=== PATIENT | female | born 1985 | race Caucasian/White ===

== ENCOUNTER → 2018-05-15 10:30 | Outpatient (CLI) | payer BC, SELFPAY ==
[2018-05-15 11:02] LABS: Kit/Specimen SENT
[2018-05-17 13:40] LABS: Calculated age at EDD 31 years; Cigarette smoking status non-smoker; GA used in risk estimate Dates estimate; IVF Pregnancy No; Initial or repeat testing Initial testing; Insulin dependent diabetes No; Maternal Weight 193 lbs; Number of Fetuses 1; Physician Phone Number 802-748-7300; Prev Pregnancy w/NTD No; RECOMMENDED FOLLOW UP None.; Results Summary Normal risk
[2018-05-21 17:05] LABS: Result Summary NEGATIVE; Specimen WB Whole Blood
== END ==
PROVIDERS: PCP Family Medicine; Visit Provider Advanced Practice Midwife
DX: Z34.02 Encounter for supervision of normal first pregnancy, second trimester (principal); Z13.228 Encounter for screening for other metabolic disorders; Z36.89 Encounter for other specified antenatal screening
CPT/HCPCS: 36415; 81220; 82105

== ENCOUNTER 2018-06-01 00:50 | Outpatient (CLI) | payer BC, SELFPAY ==
--- NOTE | 2018-06-01 08:06 | DI.US_ITS ---
Many abnormalities cannot be diagnosed. A normal exam does not exclude a congenital anomaly. Radiology No. LMP: Exam Date: [facility] wks days on EDC ([facility]) 10/27/18 Confirmed: HISTORY: SURVEY, Z34.02 ---- PREDICTED GESTATIONAL AGE NUMBER 18.6 weeks with a range of 17.6 week to 19.6 weeks. 1 Determined by__X_1STUS___LMP___HISTORY Info. pertaining to fetus # PLACENTA PRESENTATION Grade I Cephalic___ Anterior_X__Posterior___ Breech____ Right Left Transverse(head right___ Fundal___Low-lying___Previa___ Transverse(head left___ Varying___X___ BIOMETRY AMNIOTIC FLUID BPD: 42 mm 18.5 weeks Normal HC: 162 mm 19.0 weeks AC: 139 mm 19.2 weeks FL: 29 mm 19.0 weeks AMNIOTIC FLUID INDEX >26 WK CRL: mm weeks Cisterna Magna: 5 mm CI: 82 RUQ: LUQ Cerebellum: 1.9 cm EFW: grams Percentile RLQ: LLQ Total: cms Composite AGE= 19.0 wks EDC by US____10/26/18 BIOPHYSICAL PROFILE ANATOMY IDENTIFIED SCORE 0/2 Heart: 4-Chamber_X_Rate:BPM___147__ LVOT: X__ RVOT:___X Amniotic Fluid(>2cms)____ Stomach: X_ Kidneys:____X___ Respirations (>30 secs) Bladder: X___ Post. Fossa: X Body Flex/Extension 3 vessel cord:____X___Ventricles: X cord insertion:____X_ Lips:__X__ Extremity Flex/Extension spinal morphology:___X Nose:X Total Score= Palate:___X____ NS=not seen Comparison is made with 04/18/18. The exam is limited by the patient body habitus. The fetus was in variable position during the exam. The placenta is anterior. The biometric measurements correspond to 19 weeks 0 days, consistent with previous dating. The amount of amniotic fluid appears normal. No gross abnormalities are identified. IMPRESSION: survey is within normal limits.
== END 2018-06-01 01:10 ==
PROVIDERS: PCP Family Medicine; Visit Provider Advanced Practice Midwife
DX: Z34.82 Encounter for supervision of other normal pregnancy, second trimester (principal)
CPT/HCPCS: 76805

== ENCOUNTER 2018-08-09 13:29 | Outpatient (CLI) | payer BC, SELFPAY ==
[2018-08-09 14:02] LABS: HCT 35.9 % (36.0-46.0); Mean Corp. HGB Concentration 33.4 g/dL (32.0-36.0); Mean Corpuscular Hemoglobin 30.8 pg (27.0-33.0); Mean Corpuscular Volume 92.3 fL (80-95); Mean Platelet Volume 10.7 fL (8.0-11.0); Platelet Count 265 x1000/uL (130-400); RBC 3.89 m/cumm (4.00-5.20); RBC Distribution Width 13.9 % (11.7-14.6); White Blood Cell Count 10.14 k/cumm (4.4-10.8)
[2018-08-09 14:11] LABS: Glucose,1 Hr (Glucola) 195 mg/dL (80-140)
== END 2018-08-09 13:49 ==
PROVIDERS: Advanced Practice Midwife; PCP Family Medicine; Visit Provider Advanced Practice Midwife
DX: Z34.93 Encounter for supervision of normal pregnancy, unspecified, third trimester (principal)
CPT/HCPCS: 36415; 82950; 85027

== ENCOUNTER 2018-08-20 02:02 | Outpatient (CLI) | payer BC, SELFPAY ==
--- NOTE | 2018-08-20 15:00 | DIABASSESS_ITS ---
DESCRIPTION/ASSESSMENT: Eli presents for gstational diabetes consult at 30 weeks for her first . She denies family history; has had a 22 pound weight gain. Eli generally follows a low carbohydrate meal plan prior to this for weight management and resumed this since her glucose screen. INTERVENTION: Reviewed consequences of uncontrolled blood sugars during and strategy to manage. Food Guidelines - reviewed food guide, label reading, general guidelines. Physical Activity - encouraged as a way to manage hyperglycemia - discussed process. Monitoring - she is faithful to this and is documenting her numbers. ACTION PLAN: She will follow the food plan and report all blood sugars on Monday. Individual DSME/T __1__ units billed No DM group education series being offered at this time. Gestational Diabetes Blood Sugar Log for Eli Thompson Date fasting 1hr B 1 hr L 1 hr S 08/12 88@2hr 08/13 91 75 / 91@2h 79 / 75 77 08/14 80 147* / 130 75 / 89 103 / 90 *cinnamon toast crunch 08/15 78 121 / 101 127 165 / 155 *pizza; breadsticks; cake 08/16 90 Skip Skip Skip Thanksgiving 08/17 78 80 63 80 08/18 73 79 85 08/19 84 108 153* Thanksgiving dinner/pie 08/20 87 forgot
--- NOTE | 2018-09-04 10:06 | DIABASSESS_ITS ---
Gestational Diabetes Blood Sugar Log for Eli Thompson Date fasting 1hr B 1 hr L 1 hr S 08/12 88@2hr 08/13 91 75 / 91@2h 79 / 75 77 08/14 80 147* / 130 75 / 89 103 / 90 *cinnamon toast crunch 08/15 78 121 / 101 127 165 / 155 *pizza; breadsticks; cake 08/16 90 Skip Skip Skip Thanksgiving 08/17 78 80 63 80 08/18 73 79 85 08/19 84 108 153* Thanksgiving dinner/pie 08/20 87 forgot 08/21 1 strip left 135* [place], stuffing, cranberry 08/23 78 84 85 96 08/24 148* Wings, mac and cheese 08/25 88 Baby Shower 08/26 84 89 08/27 81 72 85 08/28 150* 111 109 2 toast pb, low carb cocoa 08/29 130 75 80 08/30 75 106 147* 87 *2 egg mcMuffins 08/31 77 83 93 132 09/01 73 104 145* 98 *turkey club, [facility] 09/02 79 79
--- NOTE | 2018-09-10 16:02 | DIABASSESS_ITS ---
09/03 79 113 117 85 09/04 117 227* 91 *Pizza, soda, garlic rolls 09/05 75 140* 113 88 *high protein flapjacks 09/06 72 114 Missed 97 09/07 79 120 No lunch 89 09/08 111 145* *calzone 09/09 87 72 09/10/18Here is this weeks numbers. Please note the bad number on 09/04. That was a huge mistake on my part and was quite scary.
--- NOTE | 2018-09-24 17:31 | DIABASSESS_ITS ---
DATE FASTING 1 hr B 1 hr L 1 hr S 09/17 117 110 121 09/18 Forgot Meter 135 09/19 84 87 107 122 09/20 88 117 87 123 09/21 126 123 84 09/22 76 150* 94 88 *low carb pancakes 09/23 117 92
--- NOTE | 2018-10-09 15:03 | DIABASSESS_ITS ---
09/01 73 104 145* 98 *turkey club, fudge 09/02 79 79 09/03 79 113 117 85 09/04 117 227* 91 *Pizza, soda, garlic rolls 09/05 75 140* 113 88 *high protein flapjacks 09/06 72 114 Missed 97 09/07 79 120 No lunch 89 09/08 111 145* *calzone 09/09 87 72 09/17 117 110 121 09/18 Forgot Meter 135 09/19 84 87 107 122 09/20 88 117 87 123 09/21 126 123 84 09/22 76 150* 94 88 *low carb pancakes 09/23 117 92 10/01 83 118 126 131 10/02 79 119 131 115 10/03 Ran out of strips 10/06 SKIP 103
== END 2018-08-20 02:22 ==
PROVIDERS: PCP Family Medicine; Visit Provider Dietitian, Registered
DX: O24.419 Gestational diabetes mellitus in pregnancy, unspecified control (principal); Z71.3 Dietary counseling and surveillance
CPT/HCPCS: G0108

== ENCOUNTER 2018-10-02 00:41 | Outpatient (CLI) | payer BC, SELFPAY ==
--- NOTE | 2018-10-02 09:00 | DI.US_ITS ---
Many abnormalities cannot be diagnosed. A normal exam does not exclude a congenital anomaly. Radiology No. LMP: Exam Date: 10/02/18 [facility] wks days on EDC ([facility]) 10/27/18 Confirmed: HISTORY: GESTATIONAL DIABETES, EFW, DARIN PREDICTED GESTATIONAL AGE NUMBER 36.3 weeks with a range of 35.3 week to 37.3 weeks. 1 Determined by___1STUS___LMP___HISTORY Info. pertaining to fetus # PLACENTA PRESENTATION Grade II Cephalic__X_ Anterior__X_Posterior___ Breech____ Right Left Transverse(head right___ Fundal___Low-lying___Previa___ Transverse(head left___ Varying BIOMETRY AMNIOTIC FLUID BPD: 85 mm 34.1 weeks Normal HC: 321 mm 36.1 weeks AC: 324 mm 36.2 weeks FL: 70 mm 35.6 weeks AMNIOTIC FLUID INDEX >26 WK CRL: mm weeks Cisterna Magna: mm CI: 78.5 RUQ:__5.87____LUQ___3.83 Cerebellum: cm EFW: 2803 grams 39th Percentile RLQ:__3.63____LLQ__2.74 Total:___16.1 cms Composite AGE= 35.4 wks EDC by US____11/02/18 BIOPHYSICAL PROFILE ANATOMY IDENTIFIED SCORE 0/2 Heart: 4-Chamber___Rate:BPM___144__ LVOT: RVOT: Amniotic Fluid(>2cms)____ Stomach: X__ Kidneys: X__ Respirations (>30 secs) Bladder:____X____ Post. Fossa: Body Flex/Extension 3 vessel cord: Ventricles: cord insertion: Lips:____ Extremity Flex/Extension spinal morphology: Nose: Total Score= Palate: NS=not seen There is a single living intrauterine gestation. The fetus is in the cephalic presentation. heart rate is 144 beats per minute. Estimated weight is 2803 grams which is the 39th percentile. Amniotic fluid index is 16.1. Visually the amniotic fluid appears within normal limits. The placenta is anterior. IMPRESSION: Single living intrauterine gestation. Estimated sonographic age is 35 weeks 4 days.
== END 2018-10-02 01:01 ==
PROVIDERS: PCP Family Medicine; Visit Provider Advanced Practice Midwife
DX: O24.419 Gestational diabetes mellitus in pregnancy, unspecified control (principal); Z34.93 Encounter for supervision of normal pregnancy, unspecified, third trimester; Z36.89 Encounter for other specified antenatal screening
CPT/HCPCS: 76816

== ENCOUNTER 2018-10-02 09:31 | Outpatient (CLI) | payer BC, SELFPAY | END 2018-10-02 09:51 | PROVIDERS: PCP Family Medicine; Visit Provider Nurse Practitioner | DX: O24.419 Gestational diabetes mellitus in pregnancy, unspecified control (principal); Z3A.36 36 weeks gestation of pregnancy | CPT/HCPCS: 59025 ==

== ENCOUNTER 2018-10-02 15:49 | Outpatient (REF) | payer BC, SELFPAY | END 2018-10-02 16:09 | LOC: LBN 15:49 | PROVIDERS: PCP Family Medicine; Visit Provider Nurse Practitioner | DX: Z34.93 Encounter for supervision of normal pregnancy, unspecified, third trimester (principal); Z36.85 Encounter for antenatal screening for Streptococcus B | CPT/HCPCS: 87081 ==

== ENCOUNTER 2018-10-08 13:47 | Outpatient (CLI) | payer BC, SELFPAY | END 2018-10-08 14:07 | PROVIDERS: PCP Family Medicine; Visit Provider Advanced Practice Midwife | DX: O24.419 Gestational diabetes mellitus in pregnancy, unspecified control (principal); Z3A.37 37 weeks gestation of pregnancy | CPT/HCPCS: 59025 ==

== ENCOUNTER 2018-10-16 08:00 | Outpatient (CLI) | payer BC, SELFPAY | END 2018-10-16 08:20 | PROVIDERS: PCP Family Medicine; Visit Provider Advanced Practice Midwife | DX: O24.419 Gestational diabetes mellitus in pregnancy, unspecified control (principal); Z3A.38 38 weeks gestation of pregnancy | CPT/HCPCS: 59025 ==

== ENCOUNTER 2018-10-16 10:59 | Outpatient (CLI) | payer BC, SELFPAY ==
--- NOTE | 2018-10-16 10:00 | DI.US_ITS ---
SYMPTOMS/DIAGNOSIS: BIOPHYSICAL PROFILE ULTRASOUND: There is a single intrauterine gestation. The fetus is in the cephalic presentation. heart rate is 131 bpm. The amniotic fluid index is 13.5 cm. Visually the amniotic fluid appears within normal limits. The placenta is anterior without evidence of previa. Biophysical profile score is 8 out of 8. IMPRESSION: Single intrauterine gestation with a biophysical profile score of 8 out of 8. Many abnormalities cannot be diagnosed. A normal exam does not exclude a congenital anomaly. Radiology No. [id number] LMP: Exam Date: 10/16/18 [facility] wks days on EDC ([facility]) 10/27/18 Confirmed: PREDICTED GESTATIONAL AGE NUMBER 38+3 weeks with a range of 37+3 weeks to 39+3 weeks. 1 Determined by 1STUS X LMP___HISTORY Info. pertaining to fetus # PLACENTA PRESENTATION Grade II Cephalic X Anterior X Posterior___ Breech____ Right Left Transverse(head right___ Fundal___Low-lying___Previa___ Transverse(head left___ Varying BIOMETRY AMNIOTIC FLUID BPD: mm weeks Normal HC: mm weeks AC: mm weeks FL: mm weeks AMNIOTIC FLUID INDEX >26 WK CRL: mm weeks Cisterna Magna: mm CI: RUQ: 7.36 LUQ: 2.37 Cerebellum: cm EFW: grams Percentile RLQ: 3.79 LLQ: Total: 13.5 cms Composite AGE= wks EDC by US BIOPHYSICAL PROFILE ANATOMY IDENTIFIED SCORE 0/2 Heart: 4-Chamber___Rate: 131 BPM LVOT: RVOT: Amniotic Fluid(>2cms) 2 Stomach: Kidneys: Respirations (>30 secs) 2 Bladder: Post. Fossa: Body Flex/Extension 2/2 3 vessel cord: Ventricles: cord insertion: Lips:____ Extremity Flex/Extension 2/2 spinal morphology: Nose: Total Score= 8/8 Palate: NS=not seen
== END 2018-10-16 11:19 ==
PROVIDERS: PCP Family Medicine; Visit Provider Advanced Practice Midwife
DX: Z34.93 Encounter for supervision of normal pregnancy, unspecified, third trimester (principal); Z36.89 Encounter for other specified antenatal screening
CPT/HCPCS: 76815; 76819

== ENCOUNTER 2018-10-19 08:35 | Outpatient (CLI) | payer BC, SELFPAY | END 2018-10-19 08:55 | PROVIDERS: PCP Family Medicine; Visit Provider Advanced Practice Midwife | DX: O24.419 Gestational diabetes mellitus in pregnancy, unspecified control (principal) | CPT/HCPCS: 59025 ==

== ENCOUNTER 2018-10-22 06:55 | Inpatient (IN) | payer BC, SELFPAY ==
[2018-10-22 08:29] LABS: HCT 38.8 % (36.0-46.0); HGB 13.2 g/dL (12.0-15.5); Mean Corpuscular Hemoglobin 30.5 pg (27.0-33.0); Mean Corpuscular Volume 89.6 fL (80-95); Mean Platelet Volume 11.2 fL (8.0-11.0); Platelet Count 205 x1000/uL (130-400); RBC 4.33 m/cumm (4.00-5.20); RBC Distribution Width 14.3 % (11.7-14.6); White Blood Cell Count 12.01 k/cumm (4.4-10.8)
[2018-10-22] MEDS: Lactated Ringers 1,000 ML 125 ML IV (12:54)
[2018-10-22] MEDS: Lactated Ringers 500 ML IV (16:30)
[2018-10-22] MEDS: Bupivacaine 0.25% Pres-Free 10 ML VIAL EP (17:00)
[2018-10-22] MEDS: fentaNYL 100 MCG/2 ML VIAL EP (17:00)
[2018-10-22] MEDS: Ibuprofen 600 MG TAB PO (23:11)
[2018-10-22] MEDS: Acetaminophen 325 MG TAB 650 MG PO (23:12)
[2018-10-23 07:20] LABS: HCT 35.6 % (36.0-46.0); HGB 11.6 g/dL (12.0-15.5); Mean Corp. HGB Concentration 32.6 g/dL (32.0-36.0); Mean Corpuscular Hemoglobin 29.5 pg (27.0-33.0); Mean Corpuscular Volume 90.6 fL (80-95); Mean Platelet Volume 11.6 fL (8.0-11.0); Platelet Count 180 x1000/uL (130-400); RBC 3.93 m/cumm (4.00-5.20); RBC Distribution Width 14.4 % (11.7-14.6); White Blood Cell Count 13.04 k/cumm (4.4-10.8)
[2018-10-23] MEDS: Ibuprofen 600 MG TAB PO ×3 (07:54→20:50)
[2018-10-23] MEDS: Acetaminophen 325 MG TAB 650 MG PO ×3 (07:54→20:50)
[2018-10-23] MEDS: Docusate Sodium 100 MG CAP PO (07:55)
[2018-10-24] MEDS: Ibuprofen 600 MG TAB PO ×3 (04:59→18:37)
[2018-10-24] MEDS: Docusate Sodium 100 MG CAP PO (05:00)
[2018-10-24] MEDS: Acetaminophen 325 MG TAB 650 MG PO ×4 (05:00→23:50)
[2018-10-25] MEDS: Ibuprofen 600 MG TAB PO ×2 (02:55→10:36)
[2018-10-25] MEDS: Acetaminophen 325 MG TAB 650 MG PO (10:35)
== END 2018-10-25 15:40 | disposition home or self-care (01) | DRG 807 ==
PROVIDERS: Advanced Practice Midwife; Admitting Provider Advanced Practice Midwife; PCP Family Medicine; Visit Provider Advanced Practice Midwife
DX: O42.02 Full-term premature rupture of membranes, onset of labor within 24 hours of rupture (principal); Z37.0 Single live birth; Z3A.39 39 weeks gestation of pregnancy; O24.420 Gestational diabetes mellitus in childbirth, diet controlled; Z68.32 Body mass index [BMI] 32.0-32.9, adult; Z79.82 Long term (current) use of aspirin; O32.2XX0 Maternal care for transverse and oblique lie, not applicable or unspecified; O70.0 First degree perineal laceration during delivery
CPT/HCPCS: 36415; 85027; 86850; 86900; 86901; J3010

== ENCOUNTER 2019-10-24 07:07 | Outpatient (CLI) | payer BC, SELFPAY ==
[2019-10-24 07:58] LABS: Hemoglobin A1C 5.3 % (3.8-5.6)
[2019-10-24 08:56] LABS: BUN 15 mg/dL (7-18); CREATININE 0.54 mg/dL (0.55-1.02); Calcium 8.8 mg/dL (8.5-10.1); Chloride 106 mmol/L (98-107); Glucose 87 mg/dL (74-106); Potassium 4.3 mmol/L (3.5-5.1); Sodium 140 mmol/L (136-145); TSH (W/Ref FT4) 0.63 uIU/mL (0.36-3.74)
[2019-10-24 09:11] LABS: Vitamin D 25 Total 17.8 ng/ml (30-100)
== END 2019-10-24 07:27 ==
PROVIDERS: PCP Nurse Practitioner Adult Health; Visit Provider Nurse Practitioner Adult Health
DX: R79.89 Other specified abnormal findings of blood chemistry (principal); E55.9 Vitamin D deficiency, unspecified; Z87.891 Personal history of nicotine dependence; Z86.32 Personal history of gestational diabetes
CPT/HCPCS: 36415; 80048; 82306; 83036; 84443

== ENCOUNTER 2020-03-24 08:35 | Outpatient (CLI) | payer BC, SELFPAY ==
[2020-03-27 02:49] LABS: SARS-CoV-2 RNA Undetected (Undetected); SARS-CoV-2 Specimen Source Nasopharynx
== END 2020-03-24 08:55 ==
PROVIDERS: PCP Nurse Practitioner Adult Health; Visit Provider Nurse Practitioner Adult Health
DX: Z11.59 Encounter for screening for other viral diseases (principal)
CPT/HCPCS: U0003

== ENCOUNTER 2020-05-05 10:33 | Outpatient (REF) | payer BC, SELFPAY | END 2020-05-05 10:53 | LOC: LBN 10:33 | PROVIDERS: PCP Nurse Practitioner Adult Health; Visit Provider Nurse Practitioner | DX: R30.0 Dysuria (principal) | CPT/HCPCS: 87077; 87086; 87186 ==

== ENCOUNTER 2020-12-17 08:50 | Outpatient (CLI) | payer BC, SELFPAY ==
[2020-12-17 10:07] LABS: ALT 19 U/L (14-59); AST 14 U/L (15-37); Albumin 3.4 g/dL (3.4-5.0); Alkaline Phosphatase 85 U/L (46-116); Anion Gap 10.7 mmol/L (3-11); BUN 10 mg/dL (7-18); Bilirubin, Total 0.3 mg/dL (0.2-1.0); CO2 25.3 mmol/L (21.0-32.0); CREATININE 0.5 mg/dL (0.55-1.02); Calcium 8.9 mg/dL (8.5-10.1); Chloride 102 mmol/L (98-107); Cholesterol 180 mg/dL (<200); Glucose 87 mg/dL (74-106); HDL Cholesterol 39 mg/dL (40-60); Potassium 3.9 mmol/L (3.5-5.1); Sodium 138 mmol/L (136-145); Total Protein 7.4 g/dL (6.4-8.2); Triglyceride 511 mg/dL (<150)
[2020-12-17 10:28] LABS: LDL CHOLESTEROL 75 mg/dL (<100)
== END 2020-12-17 08:51 | disposition home or self-care (01) ==
LOC: LBO 09:00
PROVIDERS: PCP Nurse Practitioner Adult Health; Visit Provider Nurse Practitioner Adult Health
DX: Z86.32 Personal history of gestational diabetes (principal); Z68.32 Body mass index [BMI] 32.0-32.9, adult
CPT/HCPCS: 80053; 80061; 83721; 83036; 84702

== ENCOUNTER 2021-01-11 03:31 | Outpatient (CLI) | payer BC, SELFPAY ==
[2021-01-11 12:11] LABS: Kit/Specimen SENT
[2021-01-11 12:22] LABS: Abs Immature Grans 0.04 10^3/uL (0.0-0.06); Absolute Basophil Count 0.03 10^3/uL (0.0-0.2); Absolute Eosinophil Count 0.06 10^3/uL (0.0-0.7); Absolute Lymphocyte Count 1.52 10^3/uL (1.2-3.4); Absolute Monocyte Count 0.48 10^3/uL (0.1-0.8); Absolute Neutrophil Count 6.83 10^3/uL (1.2-6.7); Basophils % 0.3; Eosinophils % 0.7; Glucose,1 Hr (Glucola) 123 mg/dL (80-140); HCT 37.6 % (36.0-46.0); HGB 12.9 g/dL (11.2-15.7); Immature Grans % 0.4; MCH 31.2 pg (27.0-33.0); MCHC 34.3 % (32.0-36.0); MCV 90.8 fL (80-95); MPV 10.3 fL (8.0-11.0); Monocytes % 5.4; Neutrophils % 76.2; Nucleated RBC 0 %; Platelet Count 279 10^3/uL (130-400); RBC 4.14 10^6/uL (3.93-5.22); RDW 11.9 % (11.7-14.6); RDW-SD 39.9 fL; WBC 8.96 10^3/uL (4.4-10.8)
[2021-01-11 13:13] LABS: TSH (W/Ref FT4) < 0.01 uIU/mL (0.36-3.74)
[2021-01-11 13:32] LABS: FREE T4 1.13 ng/dL (0.76-1.46)
[2021-01-12 09:33] LABS: Hepatitis B Surface Ag Negative (Negative)
[2021-01-12 10:22] LABS: HIV-1/2 Ag & Ab Screen Negative (Negative)
[2021-01-12 10:37] LABS: Hepatitis C Ab w Rflx HCV PCR Negative (Negative)
[2021-01-12 11:05] LABS: Varicella IgG Antibody Positive (See Note)
[2021-01-12 11:09] LABS: Rubella IgG Ab (UVM) Negative (See Note)
[2021-01-12 14:49] LABS: Syphilis Total Ab w/Reflex Nonreactive (Nonreactive)
[2021-01-14 12:40] LABS: 1,25-Dihydroxyvitamin D 62 pg/mL (18-78)
[2021-01-18 17:06] LABS: Specimen WB Whole Blood
== END 2021-01-11 03:32 | disposition home or self-care (01) ==
LOC: LBO 03:31
PROVIDERS: PCP Nurse Practitioner Adult Health; Visit Provider Advanced Practice Midwife
DX: Z34.91 Encounter for supervision of normal pregnancy, unspecified, first trimester (principal); Z11.4 Encounter for screening for human immunodeficiency virus [HIV]; Z11.59 Encounter for screening for other viral diseases; Z01.84 Encounter for antibody response examination; Z36.89 Encounter for other specified antenatal screening
CPT/HCPCS: 81329; 82950; 86787; 86803; 86850; 86900; 86901; 87340; 87389; 82652; 84439; 84443; 85025; 86762; 86780

== ENCOUNTER 2021-01-11 12:47 | Outpatient (REF) | payer BC, SELFPAY ==
--- NOTE | 2021-01-11 11:00 | PAPFT_PTH ---
PATIENT: Eli Nieves LOC: [facility] U#:[id number] AGE/SX: 35/F ROOM: RE01/11/[address]: Dorota Espinoza CNM : 1985 BED: DIS: 01/11/2021 SPEC #: [id number] RECD: 01/11/21 12:56 STATUS: ROSALIE THOMAS #: [id number] JOSE: 01/11/21 11:[address]: Dorota Espinoza DEPT: [facility] Cytology RECD BY: Una Roque ENTERED: 01/11/21 12:56 SP TYPE: PAPFT BOLA DR: Amalia Dominguez APRN Tissues: 1 - CX/ENDOCX FOR PAP SMEARS Procedures: PAP THIN PREP/UVM Screening HPV DNA PROBE Comments: [id number]
[2021-01-11 13:04] LABS: *AMPHETAMINES SCREEN URINE Negative (Negative); *BARBITURATES SCREEN URINE Negative (Negative); *BENZODIAZEPINES SCREEN URINE Negative (Negative); Cannabinoids THC Negative (Negative); Cocaine Screen,Urine Negative (Negative); METHADONE URINE SCREEN Negative (Negative); OPIATES URINE SCREEN Negative (Negative)
[2021-01-11 13:08] LABS: Tricyclic Antidepressants Negative (Negative)
[2021-01-12 15:07] LABS: Chlamydia Result Negative (Negative); GC Result Negative (Negative)
[2021-01-14 08:39] LABS: Buprenorphine Negative ng/mL (Cutoff: 5.0); Norbuprenorphine Negative ng/mL (Cutoff: 2.5)
== END 2021-01-11 12:48 | disposition home or self-care (01) ==
LOC: LBN 12:47
PROVIDERS: PCP Nurse Practitioner Adult Health; Visit Provider Advanced Practice Midwife
DX: Z34.91 Encounter for supervision of normal pregnancy, unspecified, first trimester (principal); Z11.3 Encounter for screening for infections with a predominantly sexual mode of transmission; Z12.4 Encounter for screening for malignant neoplasm of cervix; Z11.51 Encounter for screening for human papillomavirus (HPV)
CPT/HCPCS: 80307; 87491; 87591; 88142; 87086; 87624

== ENCOUNTER 2021-02-10 09:04 | Outpatient (CLI) | payer BC, SELFPAY ==
[2021-02-10 10:54] LABS: FREE T4 1.14 ng/dL (0.76-1.46)
[2021-02-10 11:23] LABS: TSH < 0.01 uIU/mL (0.36-3.74)
[2021-02-12 09:54] LABS: AFP 30.8 ng/mL; Calculated age at EDD 34 years; Cigarette smoking status non-Smoker; GA used in risk estimate Dates estimate; IVF Pregnancy No; Initial or repeat testing Initial testing; Insulin dependent diabetes No; Maternal Weight 193 lbs; Number of Fetuses 1; Physician Phone Number 802-748-7300; Prev Pregnancy w/NTD No; RECOMMENDED FOLLOW UP None.; Results Summary Normal risk
== END 2021-02-10 09:05 | disposition home or self-care (01) ==
LOC: LBO 09:05
PROVIDERS: PCP Nurse Practitioner Adult Health; Visit Provider Advanced Practice Midwife
DX: O99.282 Endocrine, nutritional and metabolic diseases complicating pregnancy, second trimester (principal); R94.6 Abnormal results of thyroid function studies; Z3A.15 15 weeks gestation of pregnancy; Z36.89 Encounter for other specified antenatal screening
CPT/HCPCS: 36415; 82105; 84439; 84443

== ENCOUNTER 2021-04-19 14:07 | Outpatient (REF) | payer BC, SELFPAY ==
[2021-04-20 15:17] LABS: Chlamydia Result Negative (Negative); GC Result Negative (Negative)
[2021-04-20 15:36] LABS: HSV 1 DNA Result Positive (Negative); HSV 2 DNA Result Negative (Negative)
== END 2021-04-19 14:08 | disposition home or self-care (01) ==
LOC: LBN 14:07
PROVIDERS: PCP Nurse Practitioner Adult Health; Visit Provider Advanced Practice Midwife
DX: N89.8 Other specified noninflammatory disorders of vagina (principal); Z11.3 Encounter for screening for infections with a predominantly sexual mode of transmission
CPT/HCPCS: 87491; 87529; 87591; 87480; 87510; 87660

== ENCOUNTER 2021-05-05 03:27 | Outpatient (CLI) | payer BC, SELFPAY ==
[2021-05-05 08:07] LABS: HCT 38.3 % (36.0-46.0); HGB 12.8 g/dL (11.2-15.7); MCH 30.3 pg (27.0-33.0); MCHC 33.4 % (32.0-36.0); MCV 90.8 fL (80-95); MPV 10.6 fL (8.0-11.0); Platelet Count 200 10^3/uL (130-400); RBC 4.22 10^6/uL (3.93-5.22); RDW 13.4 % (11.7-14.6); RDW-SD 44.4 fL; WBC 8.48 10^3/uL (4.4-10.8)
[2021-05-05 09:18] LABS: TSH (W/Ref FT4) 0.12 uIU/mL (0.36-3.74)
[2021-05-05 09:29] LABS: Glucose 1 Hour 172 mg/dL
[2021-05-05 09:35] LABS: FREE T4 0.91 ng/dL (0.76-1.46)
[2021-05-05 11:34] LABS: Glucose 3 Hour 133 mg/dL
== END 2021-05-05 03:28 | disposition home or self-care (01) ==
LOC: LBO 03:28
PROVIDERS: PCP Nurse Practitioner Adult Health; Visit Provider Advanced Practice Midwife
DX: O09.292 Supervision of pregnancy with other poor reproductive or obstetric history, second trimester (principal); Z86.32 Personal history of gestational diabetes; R79.89 Other specified abnormal findings of blood chemistry; Z3A.27 27 weeks gestation of pregnancy; O99.282 Endocrine, nutritional and metabolic diseases complicating pregnancy, second trimester
CPT/HCPCS: 36415; 85027; 82951; 84439; 84443

== ENCOUNTER 2021-05-19 13:54 | Outpatient (CLI) | payer BC, SELFPAY ==
[2021-05-19 14:50] VITALS: BP 119/63; PULSE 79; TEMP 36.9
--- NOTE | 2021-05-19 16:02 | W.OBNST ---
Date of service: 05/19/21 Time of Service: 16:02 NST Evaluation Reason for NST Reasons for Nonstress Test: DECREASED MOVEMENT Gestational Age Gestational Age in Weeks and Days: 29 Weeks and 2Days Test and Monitor Explained Test/Monitor Explained: Test Explained, Monitor Explained and Patient Verbalized Understanding NST Information Date on Monitor: 05/19/21 Time on Monitor: 14:00 Date off Monitor: 05/19/21 Time off Monitor: 15:00 Total Time on Monitor: 60 NST Interventions: None NST Evaluation Patient States Movement: Present FHR Baseline: 150 Variability: Moderate 6-25 bpm Accelerations: 15x15 Decelerations: None NST Results: Reactive Note NST Note Note: 29 wks for DFM, lots of FM felt by pt during monitoring, NST is reactive NST Reviewed and Verified by: Edelmira Espinoza
== END 2021-05-19 15:00 | disposition home or self-care (01) ==
LOC: BCD 13:55 → OBS 14:03
PROVIDERS: PCP Nurse Practitioner Adult Health; Visit Provider Advanced Practice Midwife
DX: O36.8130 Decreased fetal movements, third trimester, not applicable or unspecified (principal); Z3A.29 29 weeks gestation of pregnancy
CPT/HCPCS: 59025

== ENCOUNTER 2021-06-28 19:16 | Observation (INO) | payer BC, SELFPAY ==
[2021-06-28 20:11] VITALS: BP 124/73; PULSE 80; RESP 18; TEMP 36.8
[2021-06-28 20:21] LABS: Bilirubin Negative (Negative); Blood Negative (Negative); Clarity Sl Cloudy (Clear); Glucose Negative (Negative); Ketones 40 mg/dL (Negative); Leukocyte Esterase Negative (Negative); Nitrite Negative (Negative); Urobilinogen 0.2 EU/dL (Up TO 0.2)
--- NOTE | 2021-06-28 20:31 | W.PM.OBHPL1 ---
Date of service: 06/28/21 Time of Service: 20:32 Assessment and Plan Assessment and plan (1) uterine contractions: Status: Acute Assessment and plan: Uterine irritability noted without cervical dilation. Size large for dates. GBS swab taken (2) : Status: Acute Assessment and plan: Follow up at [facility] OB-HPI Labor/Delivery History of Present Illness Reason for Visit: ABDOMINAL PAIN Chief Complaint: Uterine Contractions. GINA Calculator Estimated Delivery Date Method Current WG Current Estimate 08/02/21 LMP (Certain) 35w 0d Comments: Eli called and reported lower abdominal discomfort this evening. She was unable to time contractions and she had tried laying down but that did not decrease the symptoms. She denies dysuria.Urine dip shows ketones. She reports that she has been eating a low carb diet for the past few days. History of Present Expected Delivery Route/Plan - CNM FOB/ - Caleb BG Rubella Non-Immune, give MMR issues with first child - pumped only- declines counseling. Prefers epidural for pain relief. Specific Issues/Plan 1. First trimester bleeding- normal US at 7 +3 weeks 2. Depression and post depression - zoloft 25 mg, seeing a counselor regularly. 3. Hx of gestational diabetes diet control, BMI greater than 30 - early [id number] 4. Had covid - 13 Aug 2020. Planning on COVID vaccine in 3rd trimester. Partner does not plan to get it. 5. Daughter has microcephaly, followed @ [facility] [place], small child overall, speech delays, no etiology ID'ed 5a. Offered & desires level 2 sono and MFM consult @ 19-20 wks, ordered, sched'ed for 03/12/21 5b. Normal anatomy scan at [facility] [place] 6. Desires SMA and [place] testing (drawn 01/11/21), known CF carrier neg. 6a. [place] result low prob x3, female; SMA carrier screen neg. Single marker AFP; neg for NTD 7. Vit D last year was low @ 17, taking 5,000 IU daily, recheck 01/11/21: level now 62, advised to decrease to 5,000 IU 2x/wk 8. TSH <0.01, T4 1.13, repeat in second trimester: result TSH 0.01/T4 1.14, will repeat with 28 wk labs-TSH 0.12/0.91 9. Rubella non-immune, will accept MMR vaccine 10. Doing 3 hour glucose at 28 weeks per patient hx and choice 10a. 3 hour test results: F90/ 1hr 172/ 2 hr 160 /3 hr 133 (WNL except 2 hr elevated) patient aware 11. Genital HSV - recommend valtrex at 36 weeks. 12. BV - treated with flagyl Assessment: History Reviewed & Current [facility] Medical History (Updated 06/28/21 @ 21:02 by Jorge Barba CNM) Abnormal Pap smear of cervix (07/27/10) Ascus-POS HPV, colpo then all subsequent paps WNL ADHD Discontinued Vyvanse with 2020 Adult BMI 32.0-32.9 kg/sq m Anxiety Intermittent Sertraline Anxiety disorder, unspecified Reports Hx panic attacks, none since starting Sertraline, 10 years ago (approx 2009); increased anxiety since news of ; pt reduced dose to 25mg b/c , will discuss with PCP and OB, open to incr. dose again if current anxiety cont. Chronic cough (12/26/19) [facility] [place] GI/Claude; RX Nexium 40mg daily resolved issue COVID-19 08/13/20 after travel to [place] Gastroesophageal reflux disease (12/26/19) [facility] [place] GI/Claude Genital warts due to HPV (human papillomavirus) H/O gestational diabetes mellitus, not currently 2017 Hypertriglyceridemia 2020 >500 Miscarriage, threatened, early Overeating c/w binge eating d/o; started on vyvanse RX 05/2020, effective Panic attacks Rand (felt like DC) Intermittently on Sertraline major depression in remission Surgical History [place] teeth extracted (2007) Family History Brother Substance abuse Heroin, cocaine-in recovery at moment Paternal Grandmother Colon cancer Other Alcohol abuse Social History Smoking/Tobacco Use Status: Former Tobacco Use Quit Date: 09/25/13 Smoking risk assessment performed?: Yes Alcohol Intake: current Alcohol Intake frequency: holidays/special occasions only Details: none in Drug use: Never Substance use type: does not use Adopted: No Caregiver/Support person: No Foster care: No Household members: spouse and children Housing: house Number of Children: 1 Communication Needs: None Education Level: master's degree Do you need help understanding health information?: Rarely 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), [employer] Pets and animals: Yes (2 cats,and dogs) Pets and animals: cat(s) and dog(s) Sexually active: Yes Do you think of yourself as: straight/heterosexual Current gender identity: female What is your relationship status?: Panel score (0-1 are the most socially isolated patients): 1 What type of physical activity do you participate in: walking Duration: 30-45 minutes/day Frequency: 3-4 times per week Nirmala/Taoism: mu-ism Seatbelt use: always Helmet use: Yes Drive intox or ride w/intox local city driver: No Water heater temp set <120 deg: Yes Working smoke detector in home: Yes Fire extinguisher in home: Yes Carbon monox detector in home: Yes Firearms in home: Yes Do you feel safe at home: Yes Do you feel safe in your relationship?: Yes Victim of physical abuse: No Victim of emotional abuse: No Victim of sexual abuse: No History History 2 Para 1 Hx # Term Pregnancies 0 Multiple births 0 Hx # Pregnancies 0 Ectopic pregnancies 0 AB induced 1 Hx Number of Living Children 1 AB spontaneous 0 Past Pregnancies Del. Date GA/Weeks # Outcome Route Wgt Sex Labor Lgth Anesthesia Location [facility] 10/22/18 39 No Successful vaginal 6 lb 3 oz Female 15 hrs. 37 min. jorge barba cnm Delivery Date: 10/22/18 hand presenting with face @ delivery. Baby had heart murmur and microcephaly. Speech delays. Jorge Barba Meds Allergies and Home Medications Allergies Allergy/AdvReac Type Severity Reaction Status Date / Time No Known Allergies Allergy Verified 06/24/21 09:34 Home Medications Medication Instructions Recorded Confirmed Type albuterol sulfate 90 mcg/actuation 1 - 2 puff IH Q4H PRN #8.5 gm 01/23/20 06/24/21 Rx aerosol inhaler doxylamine succinate 25 mg tablet 12.5 mg PO QHS PRN tab 12/17/20 06/24/21 History cholecalciferol (vitamin D3) 50 50 mcg PO DAILY 02/10/21 06/24/21 History mcg (2,000 unit) capsule prenat.vits,maya,xym-wtvh-bugwv 1 tab PO DAILY 04/07/21 06/24/21 History sertraline 50 mg tablet 25 mg PO DAILY #90 tab-cap 04/07/21 06/24/21 Rx Exam Physical Exam Vital signs: Temp Pulse Resp BP 98.2 F 80 18 124/73 06/28/21 20:11 06/28/21 20:11 06/28/21 20:11 06/28/21 20:11 Vital Signs Reviewed: Yes Constitutional Constitutional: no acute distress Detailed Labor and Delivery Exam Dilation: 0 Effacement (%): 50 station: -3 Cervix position: mid Consistency: soft Copeland Score: Cervical Points Exam 0 1 2 3 Dilation Closed 1-2cm 3-4 cm 5-6cm Effacement 0-30% 40-50% 60-70% 80% Consistency Firm Medium Soft Station -3 -2 -1,0 +1,+2 Position Posterior Mid Anterior Amniotic Membrane Status: Intact Contraction Frequency(min): every 4 minutes Contraction Duration(sec): 50 Contraction Intensity: Mild Fetus A Heart Rate Baseline: 140 Monitor Accelerations: 15 X 15 Monitor Decelerations: Variable Variability: Moderate (6-25 BPM) Presentation: Vertex Categories: Category I Assessment Note: fetus very active and difficult to monito Respiratory Exam Respiratory Exam: Normal Cardiovascular Exam Cardiovascular Exam: Normal Abdominal Exam Abdominal Exam: Normal (fundal height 38) Rectal Exam Rectal Exam: Normal Exam Exam: Normal Extremities Exam Extremities Exam: Normal Skin Exam Skin Exam: Normal Psychiatric Exam Psychiatric Exam: Normal Results Abnormal Lab Findings: Abnormal Labs 06/28/21 19:55 Urine Ketones 40 H Risk Assessment Risk for Shoulder Dystocia Historical/Initial OB: POSITIVE FOR: Pre- BMI>30; NEGATIVE FOR: Pelvic Abnormality, Previous Shoulder Dystocia or Previous Macrosomia 40 Weeks: NEGATIVE FOR: EFW> 4500 gms, Maternal Weight Gain >40lb or Post Dates Increased Risk?: No Risk for Pre-Eclampsia Daily Dose ASA Indicated: No Yes, if one or more: NEGATIVE FOR: Hx Pre-E/Gest HTN, Chronic HTN, Multiple Gestation, Pre-gestational DM, Renal Disease, Systemic Lupus or APA Syndrome Yes, if 2 or more: POSITIVE FOR: BMI>30; NEGATIVE FOR: Nulliparity, Age>= 35 yrs, >10yr btwn pregnancies, ethinicty, Mother/Sister w/ Pre-E or Previous IUGR Risk for Post- Hemorrhage Initial: NEGATIVE FOR: Multiple Gestation, Previous PPH, Known Clotting Deficiency, Grand Multiparity or Anticoagulation At Risk?: No Risks Reviewed Risks Reviewed Upon Admission: Yes
--- NOTE | 2021-06-28 21:23 | DSE_ITS ---
Date of service: 06/28/21 Time of Service: 21:23 DS: Diagnosis Discharge Diagnosis (1) uterine contractions: Status: Acute Asessment and Plan: Eli drank two glasses of water. Contractions be came milder and more irregular. Pattern was consistent with uterine irritability. Signs of labor reviewed. US has been ordered for weight and DARIN and will be set up tomorrow through [facility] receptionist/telephone operator. She was encouraged to rest at home tomorrow and call with recurrence of symptoms. Continue to drink adequate fluids. Follow up with appointment at [facility]. GBS swab sent. (2) : Status: Acute Discharge Plan Discharge Details Reason For Visit: ABDOMINAL PAIN Admit Date/Time: 06/28/21 19:16 Admit Provider: Jorge Barba Attending Provider: Jorge Barba Primary Care Provider: Amalia Dominguez Home Meds and New Rx's Prescriptions: No Action prenat.vits,maya,pff-onqg-tuydg Tablet 1 tab PO DAILY RF: 0 sertraline [Zoloft] 50 mg tablet 25 mg PO DAILY Qty: 90 RF: 1 Unisom (doxylamine) 25 mg tablet 12.5 mg PO QHS PRNRF: 0 cholecalciferol (vitamin D3) 50 mcg (2,000 unit) capsule 50 mcg PO DAILY RF: 0 albuterol sulfate [Proventil HFA] 90 mcg/actuation HFA aerosol inhaler 1 - 2 puff IH Q4H PRN (Reason: shortness of breath or wheezing) Qty: 8.5 RF: 0 Discharge Instructions Activity:: Activity as Tolerated Activity:: Activity as Tolerated Equipment/Supplies:: No Equipment Needed Diet:: As Tolerated OB:DS Summary Contraception Discussed Contraception Discussed: No, Status at Discharge Functional status at discharge: independent ambulation Overall status at discharge: patient is back to baseline Mental Status: mental status grossly normal Speech and Movement: speech and movement normal Mood: congruent mood Affect: normal affect Exam Physical Exam Vital signs: Temp Pulse Resp BP 98.2 F 80 18 124/73 06/28/21 20:11 06/28/21 20:11 06/28/21 20:11 06/28/21 20:11 [facility] Medical History (Updated 06/28/21 @ 21:02 by Jorge Mulkern, CNM) Abnormal Pap smear of cervix (07/27/10) Ascus-POS HPV, colpo then all subsequent paps WNL ADHD Discontinued Vyvanse with 2020 Adult BMI 32.0-32.9 kg/sq m Anxiety Intermittent Sertraline Anxiety disorder, unspecified Reports Hx panic attacks, none since starting Sertraline, 10 years ago (approx 2009); increased anxiety since news of ; pt reduced dose to 25mg b/c , will discuss with PCP and OB, open to incr. dose again if current anxiety cont. Chronic cough (12/26/19) [facility]; RX Nexium 40mg daily resolved issue COVID-19 08/13/20 after travel to [place] Gastroesophageal reflux disease (12/26/19) [facility] Genital warts due to HPV (human papillomavirus) H/O gestational diabetes mellitus, not currently 2017 Hypertriglyceridemia 2020 >500 Miscarriage, threatened, early Overeating c/w binge eating d/o; started on vyvanse RX 05/2020, effective Panic attacks College (felt like [place]) Intermittently on Sertraline major depression in remission Surgical History [place] teeth extracted (2007) Family History Brother Substance abuse Heroin, cocaine-in recovery at moment Paternal Grandmother Colon cancer Other Alcohol abuse Social History Smoking/Tobacco Use Status: Former Tobacco Use Quit Date: 09/25/13 Smoking risk assessment performed?: Yes Alcohol Intake: current Alcohol Intake frequency: holidays/special occasions only Details: none in Drug use: Never Substance use type: does not use Adopted: No Caregiver/Support person: No Foster care: No Household members: spouse and children Housing: house Number of Children: 1 Communication Needs: None Education Level: master's degree Do you need help understanding health information?: Rarely 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), [employer] Pets and animals: Yes (2 cats,and dogs) Pets and animals: cat(s) and dog(s) Sexually active: Yes Do you think of yourself as: straight/heterosexual Current gender identity: female What is your relationship status?: Panel score (0-1 are the most socially isolated patients): 1 What type of physical activity do you participate in: walking Duration: 30-45 minutes/day Frequency: 3-4 times per week Nirmala/Pentecostal: roman catholic Seatbelt use: always Helmet use: Yes Drive intox or ride w/intox moving van driver: No Water heater temp set <120 deg: Yes Working smoke detector in home: Yes Fire extinguisher in home: Yes Carbon monox detector in home: Yes Firearms in home: Yes Do you feel safe at home: Yes Do you feel safe in your relationship?: Yes Victim of physical abuse: No Victim of emotional abuse: No Victim of sexual abuse: No History History 2 Para 1 Hx # Term Pregnancies 0 Multiple births 0 Hx # Pregnancies 0 Ectopic pregnancies 0 AB induced 1 Hx Number of Living Children 1 AB spontaneous 0 Past Pregnancies Del. Date GA/Weeks # Outcome Route Wgt Sex Labor Lgth Anesthes ia Location [facility] 10/22/18 39 No Successful vaginal 6 lb 3 oz Female 15 hrs. 37 min. jorge abrba cnm Delivery Date: 10/22/18 hand presenting with face @ delivery. Baby had heart murmur and microcephaly. Speech delays. Jorge Barba DS: Data Vitals/I&O Vitals and I&O: Vital Signs Temperature 98.2 F 06/28/21 20:11 Pulse 80 06/28/21 20:11 Respiratory Rate 18 06/28/21 20:11 Blood Pressure 124/73 06/28/21 20:11 Blood Pressure Mean 90 06/28/21 20:11 Pain Level 5 06/28/21 20:11 Intake & Output 06/27/21 06/28/21 06/28/21 23:59 11:59 23:59 Output Total 100 / 100 Balance -100 / -100 Output: Urine 100 / 100 Data Completed and Pending Labs on day of discharge: Labs from last 24 hours 06/28/21 19:55 Urine Color Yellow Urine Clarity Sl Cloudy Urine pH 6.0 Ur Specific [place] 1.010 Urine Protein Negative Urine Ketones 40 H Urine Blood Negative Urine Nitrite Negative Urine Bilirubin Negative Urine Urobilinogen 0.2 Ur Leukocyte Esterase Negative Urine Glucose Negative 06/28/21 20:45 Vaginal Group B Streptococcus Culture - Pending Preliminary micro results at discharge 06/28/21 20:45 Group B Streptococcus Culture - Pending Vaginal
== END 2021-06-28 21:15 | disposition home or self-care (01) ==
LOC: OBS 19:42
PROVIDERS: Admitting Provider Advanced Practice Midwife; PCP Nurse Practitioner Adult Health; Visit Provider Advanced Practice Midwife
DX: O47.03 False labor before 37 completed weeks of gestation, third trimester (principal); Z3A.35 35 weeks gestation of pregnancy; O98.313 Other infections with a predominantly sexual mode of transmission complicating pregnancy, third trimester
CPT/HCPCS: 81003; 87081; G0378

== ENCOUNTER 2021-06-30 08:21 | Observation (INO) | payer BC, SELFPAY ==
[2021-06-30 08:28] VITALS: BP 116/54; PULSE 77; RESP 16; TEMP 36.9
[2021-06-30 09:17] LABS: HCT 36.4 % (36.0-46.0); HGB 12.1 g/dL (11.2-15.7); MCH 30.7 pg (27.0-33.0); MCHC 33.2 % (32.0-36.0); MCV 92.4 fL (80-95); MPV 10.8 fL (8.0-11.0); Platelet Count 211 10^3/uL (130-400); RBC 3.94 10^6/uL (3.93-5.22); RDW 13.7 % (11.7-14.6); RDW-SD 46.8 fL; WBC 7.95 10^3/uL (4.4-10.8)
--- NOTE | 2021-06-30 09:50 | W.PM.OBHPL1 ---
Date of service: 06/30/21 Time of Service: 08:40 Assessment and Plan Assessment and plan (1) Round ligament pain: Status: Acute Assessment and plan: A: 36 yo @ 35 wks Previously noted S>D, ultrasound scheduled for tomorrow maternal anxiety, round ligament pain CBC is WNL, Abd exam and PE is WNL P: wellbeing verified today with category 1 tracing Reactive NST Keep appt for ultrasound tomorrow Discharge home, call for any additional questions or concerns (2) Large for dates affecting management of mother: Status: Acute Assessment and plan: Ultrasound for EFW and DARIN scheduled for tomorrow Qualifiers: Fetus number: single or unspecified fetus Trimester: third trimester Qualified Code(s): O36.63X0 - Maternal care for excessive growth, third trimester, not applicable or unspecified OB-HPI Labor/Delivery History of Present Illness Reason for Visit: Rule out Pre Term Labor Chief Complaint: Other (RLQ pain yesterday morning that resolved, then it happened again this morning: sharp painful, unable to walk well, gets better with position change, no vomiting, no bleeding, also voices worry about her baby's wellbeing.). GINA Calculator Estimated Delivery Date Method Current WG Current Estimate 08/02/21 LMP (Certain) 35w 2d History of Present Expected Delivery Route/Plan - CNM FOB/ - Caleb BG Rubella Non-Immune, give MMR issues with first child - pumped only- declines counseling. Prefers epidural for pain relief. Specific Issues/Plan 1. First trimester bleeding- normal US at 7 +3 weeks 2. Depression and post depression - zoloft 25 mg, seeing a counselor regularly. 3. Hx of gestational diabetes diet control, BMI greater than 30 - early SMI=717 4. Had covid - 13 Aug 2020. Planning on COVID vaccine in 3rd trimester. Partner does not plan to get it. 5. Daughter has microcephaly, followed @ [facility], small child overall, speech delays, no etiology ID'ed 5a. Offered & desires level 2 sono and MFM consult @ 19-20 wks, ordered, sched'ed for 03/12/21 5b. Normal anatomy scan at [facility] 6. Desires SMA and [place] testing (drawn 01/11/21), known CF carrier neg. 6a. [place] result low prob x3, female; SMA carrier screen neg. Single marker AFP; neg for NTD 7. Vit D last year was low @ 17, taking 5,000 IU daily, recheck 01/11/21: level now 62, advised to decrease to 5,000 IU 2x/wk 8. TSH <0.01, T4 1.13, repeat in second trimester: result TSH 0.01/T4 1.14, will repeat with 28 wk labs-TSH 0.12/0.91 9. Rubella non-immune, will accept MMR vaccine 10. Doing 3 hour glucose at 28 weeks per patient hx and choice 10a. 3 hour test results: F90/ 1hr 172/ 2 hr 160 /3 hr 133 (WNL except 2 hr elevated) patient aware 11. Genital HSV - recommend valtrex at 36 weeks. 12. BV - treated with flagyl Assessment: History Reviewed & Current Review of Systems All systems reviewed & are unremarkable except as noted in HPI and below Constitutional Constitutional: Reports system reviewed and no additional complaints, except as documented Cardiovascular Cardiovascular: Reports as per HPI Respiratory Respiratory: Reports as per HPI Gastrointestinal Gastrointestinal: Reports as per HPI Genitourinary Genitourinary: Reports system reviewed and no additional complaints, except as documented Musculoskeletal Comments: likely round ligament pain Psychiatric Psychiatric: Reports anxiety [facility] Medical History (Updated 06/30/21 @ 09:55 by Edelmira Espinoza) Abnormal Pap smear of cervix (07/27/10) Ascus-POS HPV, colpo then all subsequent paps WNL ADHD Discontinued Vyvanse with 2020 Adult BMI 32.0-32.9 kg/sq m Anxiety Intermittent Sertraline Anxiety disorder, unspecified Reports Hx panic attacks, none since starting Sertraline, 10 years ago (approx 2009); increased anxiety since news of ; pt reduced dose to 25mg b/c , will discuss with PCP and OB, open to incr. dose again if current anxiety cont. Chronic cough (12/26/19) [facility]; RX Nexium 40mg daily resolved issue COVID-19 08/13/20 after travel to [place] Gastroesophageal reflux disease (12/26/19) [facility] Genital warts due to HPV (human papillomavirus) H/O gestational diabetes mellitus, not currently 2017 Hypertriglyceridemia 2020 >500 Miscarriage, threatened, early Overeating c/w binge eating d/o; started on vyvanse RX 05/2020, effective Panic attacks College (felt like [place]) Intermittently on Sertraline major depression in remission Surgical History [place] teeth extracted (2007) Family History Brother Substance abuse Heroin, cocaine-in recovery at moment Paternal Grandmother Colon cancer Other Alcohol abuse Social History Smoking/Tobacco Use Status: Former Tobacco Use Quit Date: 09/25/13 Smoking risk assessment performed?: Yes Alcohol Intake: current Alcohol Intake frequency: holidays/special occasions only Details: none in Drug use: Never Substance use type: does not use Adopted: No Caregiver/Support person: No Foster care: No Household members: spouse and children Housing: house Number of Children: 1 Communication Needs: None Education Level: master's degree Do you need help understanding health information?: Rarely 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), [employer] Pets and animals: Yes (2 cats,and dogs) Pets and animals: cat(s) and dog(s) Sexually active: Yes Do you think of yourself as: straight/heterosexual Current gender identity: female What is your relationship status?: Panel score (0-1 are the most socially isolated patients): 1 What type of physical activity do you participate in: walking Duration: 30-45 minutes/day Frequency: 3-4 times per week Nirmala/Jainism: congregational Seatbelt use: always Helmet use: Yes Drive intox or ride w/intox semi driver: No Water heater temp set <120 deg: Yes Working smoke detector in home: Yes Fire extinguisher in home: Yes Carbon monox detector in home: Yes Firearms in home: Yes Do you feel safe at home: Yes Do you feel safe in your relationship?: Yes Victim of physical abuse: No Victim of emotional abuse: No Victim of sexual abuse: No History History 2 Para 1 Hx # Term Pregnancies 0 Multiple births 0 Hx # Pregnancies 0 Ectopic pregnancies 0 AB induced 1 Hx Number of Living Children 1 AB spontaneous 0 Past Pregnancies Del. Date GA/Weeks # Outcome Route Wgt Sex Labor Lgth Anesthesia Location Prov Complic 10/22/18 39 No Successful vaginal 6 lb 3 oz Female 15 hrs. 37 min. jorge barba cnm Delivery Date: 10/22/18 hand presenting with face @ delivery. Baby had heart murmur and microcephaly. Speech delays. Jorge Barba Meds Allergies and Home Medications Allergies Allergy/AdvReac Type Severity Reaction Status Date / Time No Known Allergies Allergy Verified 06/24/21 09:34 Home Medications Medication Instructions Recorded Confirmed Type doxylamine succinate 25 mg tablet 12.5 mg PO QHS PRN tab 12/17/20 06/30/21 History cholecalciferol (vitamin D3) 50 50 mcg PO DAILY 02/10/21 06/30/21 History mcg (2,000 unit) capsule prenat.vits,maya,rku-pjqy-bvswf 1 tab PO DAILY 04/07/21 06/30/21 History sertraline 50 mg tablet 25 mg PO DAILY #90 tab-cap 04/07/21 06/30/21 Rx albuterol sulfate [Proventil HFA] 1 - 2 puff IH Q4H PRN PRN 06/30/21 History Exam Physical Exam Vital signs: Temp Pulse Resp BP 98.4 F 77 16 116/54 L 06/30/21 08:28 06/30/21 08:28 06/30/21 08:28 06/30/21 08:28 Vital Signs Reviewed: Yes Constitutional Constitutional: no acute distress Detailed Labor and Delivery Exam Copeland Score: Cervical Points Exam 0 1 2 3 Dilation Closed 1-2cm 3-4 cm 5-6cm Effacement 0-30% 40-50% 60-70% 80% Consistency Firm Medium Soft Station -3 -2 -1,0 +1,+2 Position Posterior Mid Anterior Amniotic Membrane Status: Intact Contraction Frequency(min): 0 Fetus A Heart Rate Baseline: 135 Monitor Accelerations: 15 X 15 Monitor Decelerations: None Variability: Moderate (6-25 BPM) Categories: Category I HEENT Exam HEENT Exam: Normal Neck Exam Neck Exam: Normal Chest/Brest/Axilla Exam Chest Exam: Normal Breast Exam Breast Exam: Not Done Respiratory Exam Respiratory Exam: Normal Cardiovascular Exam Cardiovascular Exam: Normal Abdominal Exam Abdominal Exam: Normal (Gravid, soft, nontender) Rectal Exam Rectal Exam: Not Done Exam Exam: Not Done Extremities Exam Extremities Exam: Normal Back/Spine/Pelvis Exam Back Exam: Normal Skin Exam Skin Exam: Normal Neurological Exam Neurological Exam: Normal Psychiatric Exam Psychiatric Exam: Normal Results Results Group Beta Strep: Not Done Blood Type: B+ Rubella Status: Nonimmune Varicella Immunity: Immune Risk Assessment Risk for Shoulder Dystocia Historical/Initial OB: POSITIVE FOR: Pre- BMI>30; NEGATIVE FOR: Pelvic Abnormality, Previous Shoulder Dystocia or Previous Macrosomia 40 Weeks: NEGATIVE FOR: EFW> 4500 gms, Maternal Weight Gain >40lb or Post Dates Risk for Pre-Eclampsia Yes, if one or more: NEGATIVE FOR: Hx Pre-E/Gest HTN, Chronic HTN, Multiple Gestation, Pre-gestational DM, Renal Disease, Systemic Lupus or APA Syndrome Yes, if 2 or more: POSITIVE FOR: BMI>30; NEGATIVE FOR: Nulliparity, Age>= 35 yrs, >10yr btwn pregnancies, ethinicty, Mother/Sister w/ Pre-E or Previous IUGR Risk for Post- Hemorrhage Initial: NEGATIVE FOR: Multiple Gestation, Previous PPH, Known Clotting Deficiency, Grand Multiparity or Anticoagulation Risks Reviewed Risks Reviewed Upon Admission: Yes
[2021-06-30 10:06] VITALS: BP 116/54; PULSE 77; TEMP 36.9
[2021-06-30 11:11] VITALS: BP 116/54; PULSE 77; TEMP 36.9
--- NOTE | 2021-06-30 11:11 | W.OBNST ---
Date of service: 06/30/21 Time of Service: 11:11 NST Evaluation Reason for NST Reasons for Nonstress Test: LABOR Gestational Age Gestational Age in Weeks and Days: 35 Weeks and 2Days Test and Monitor Explained Test/Monitor Explained: Test Explained, Monitor Explained and Patient Verbalized Understanding Vital Signs Blood Pressure: 116/54 Pulse: 77 Temperature: 98.4 F Urine Results Urine Protein: Negative Urine Ketones: Negative Urine Glucose: Negative Urine Blood: Negative NST Information Date on Monitor: 06/30/21 Time on Monitor: 08:26 Date off Monitor: 06/30/21 Time off Monitor: 09:43 Total Time on Monitor: 77 NST Interventions: PO Hydration NST Evaluation Patient States Movement: Present FHR Baseline: 140 Variability: Moderate 6-25 bpm Accelerations: 15x15 Decelerations: None NST Results: Reactive Note NST Note NST Reviewed and Verified by: Edelmira Espinoza
--- NOTE | 2021-07-02 16:52 | DSE_ITS ---
Date of service: 06/30/21 Time of Service: 09:00 DS: Diagnosis Discharge Diagnosis (1) Round ligament pain: Status: Acute (2) Large for dates affecting management of mother: Status: Acute Discharge Plan Disposition Patient Disposition: HOME Condition: Good Discharge Details Reason For Visit: Rule out Pre Term Labor Admit Date/Time: 06/30/21 08:21 Admit Provider: Edelmira Espinoza Attending Provider: Edelmira Espinoza Primary Care Provider: Amalia Dominguez Hospital Course Hospital Course: Observation for 90 minutes, no labor, well hydrated, RLQ pain resolved while resting, category 1 tracing, discharged to home, f/up ultrasound tomorrow. Home Meds and New Rx's Prescriptions: No Action prenat.vits,maya,[id number] Tablet 1 tab PO DAILY RF: 0 sertraline [Zoloft] 50 mg tablet 25 mg PO DAILY Qty: 90 RF: 1 Unisom (doxylamine) 25 mg tablet 12.5 mg PO QHS PRNRF: 0 cholecalciferol (vitamin D3) 50 mcg (2,000 unit) capsule 50 mcg PO DAILY RF: 0 albuterol sulfate [Proventil HFA] 90 mcg/actuation HFA aerosol inhaler 1 - 2 puff IH Q4H PRN PRN (Reason: shortness of breath or wheezing) RF: 0 Discharge Instructions Stand Alone Forms: Center Observation Activity:: Activity as Tolerated Equipment/Supplies:: No Equipment Needed Diet:: Normal Diet Discharge Orders Discharge Orders: Discharge Order (Routine); Ordered 06/30/21 Ordered By: Edelmira Espinoza Discharge Data Discharge Date/Time-TO BE ENTERED AT DEPARTURE: 06/30/21 09:52 OB:DS Summary Contraception Discussed Contraception Discussed: No (undelivered), Status at Discharge Functional status at discharge: independent ambulation Overall status at discharge: patient is back to baseline Mental Status: mental status grossly normal Speech and Movement: speech and movement normal and speech clear Mood: congruent mood Affect: normal affect Exam Physical Exam Vital signs: Temp Pulse Resp BP 98.4 F 77 16 116/54 L 06/30/21 08:28 06/30/21 08:28 06/30/21 08:28 06/30/21 08:28 Vital Signs Reviewed: Yes Constitutional Constitutional: no acute distress HEENT Exam HEENT Exam: Normal Neck Exam Neck Exam: Normal Respiratory Exam Respiratory Exam: Normal Cardiovascular Exam Cardiovascular Exam: Normal Rectal Exam Rectal Exam: Not Done Back/Spine/Pelvis Exam Back Exam: Normal Skin Exam Skin Exam: Normal Neurological Exam Neurological Exam: Normal Psychiatric Exam Psychiatric Exam: Normal [facility] Medical History (Updated 06/30/21 @ 09:55 by Edelmira Espinoza) Abnormal Pap smear of cervix (07/27/10) Ascus-POS HPV, colpo then all subsequent paps WNL ADHD Discontinued Vyvanse with 2020 Adult BMI 32.0-32.9 kg/sq m Anxiety Intermittent Sertraline Anxiety disorder, unspecified Reports Hx panic attacks, none since starting Sertraline, 10 years ago (approx 2009); increased anxiety since news of ; pt reduced dose to 25mg b/c , will discuss with PCP and OB, open to incr. dose again if current anxiety cont. Chronic cough (12/26/19) [facility]; RX Nexium 40mg daily resolved issue COVID-19 08/13/20 after travel to [place] Gastroesophageal reflux disease (12/26/19) [facility] Genital warts due to HPV (human papillomavirus) H/O gestational diabetes mellitus, not currently 2017 Hypertriglyceridemia 2020 >500 Miscarriage, threatened, early Overeating c/w binge eating d/o; started on vyvanse RX 05/2020, effective Panic attacks College (felt like [place]) Intermittently on Sertraline major depression in remission Surgical History [place] teeth extracted (2007) Family History Brother Substance abuse Heroin, cocaine-in recovery at moment Paternal Grandmother Colon cancer Other Alcohol abuse Social History Smoking/Tobacco Use Status: Former Tobacco Use Quit Date: 09/25/13 Smoking risk assessment performed?: Yes Alcohol Intake: current Alcohol Intake frequency: holidays/special occasions only Details: none in Drug use: Never Substance use type: does not use Adopted: No Caregiver/Support person: No Foster care: No Household members: spouse and children Housing: house Number of Children: 1 Communication Needs: None Education Level: master's degree Do you need help understanding health information?: Rarely 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), [employer] Pets and animals: Yes (2 cats,and dogs) Pets and animals: cat(s) and dog(s) Sexually active: Yes Do you think of yourself as: straight/heterosexual Current gender identity: female What is your relationship status?: Panel score (0-1 are the most socially isolated patients): 1 What type of physical activity do you participate in: walking Duration: 30-45 minutes/day Frequency: 3-4 times per week Nirmala/Samaritan: confucianist Seatbelt use: always Helmet use: Yes Drive intox or ride w/intox driver education instructor: No Water heater temp set <120 deg: Yes Working smoke detector in home: Yes Fire extinguisher in home: Yes Carbon monox detector in home: Yes Firearms in home: Yes Do you feel safe at home: Yes Do you feel safe in your relationship?: Yes Victim of physical abuse: No Victim of emotional abuse: No Victim of sexual abuse: No History History 2 Para 1 Hx # Term Pregnancies 0 Multiple births 0 Hx # Pregnancies 0 Ectopic pregnancies 0 AB induced 1 Hx Number of Living Children 1 AB spontaneous 0 Past Pregnancies Del. Date GA/Weeks # Outcome Route Wgt Sex Labor Lgth Anesthes ia Location [facility] 10/22/18 39 No Successful vaginal 6 lb 3 oz Female 15 hrs. 37 min. jorge barba cnm Delivery Date: 10/22/18 hand presenting with face @ delivery. Baby had heart murmur and microcephaly. Speech delays. Jorge Barba DS: Data Vitals/I&O Vitals and I&O: Vital Signs Temperature 98.4 F 06/30/21 08:28 Pulse 77 06/30/21 08:28 Pulse Rhythm Regular 06/30/21 08:28 Respiratory Rate 16 06/30/21 08:28 Blood Pressure 116/54 L 06/30/21 08:28 Oxygen Delivery Method Room Air 06/30/21 08:28 Oxygen Flow Rate 0 06/30/21 08:28
== END 2021-06-30 09:52 | disposition home or self-care (01) ==
PROVIDERS: Advanced Practice Midwife; Admitting Provider Advanced Practice Midwife; PCP Nurse Practitioner Adult Health; Visit Provider Advanced Practice Midwife
DX: O26.893 Other specified pregnancy related conditions, third trimester (principal); O36.63X0 Maternal care for excessive fetal growth, third trimester, not applicable or unspecified; R10.2 Pelvic and perineal pain; Z3A.35 35 weeks gestation of pregnancy
CPT/HCPCS: 36415; 85027; 86900; 86901; 59025; G0378

== ENCOUNTER 2021-07-01 01:55 | Outpatient (CLI) | payer BC, SELFPAY ==
--- NOTE | 2021-07-01 08:15 | DI.US_ITS ---
Exam(s) US OB DARIN WEIGHT EXAM: US OB DARIN WEIGHT CLINICAL HISTORY: size greater than dates,uterine irritability,z34.90,O36.60x0. TECHNIQUE: Transabdominal obstetrical ultrasound performed. COMPARISON: US US OB 1ST TRIMESTER from 12/17/2020 FINDINGS: Transabdominal obstetrical ultrasound performed. FINDINGS: Number of fetuses: One. position: Cephalic. Placental location: There is a grade 2 anterior placenta. No evidence of previa. BIOMETRIC DATA: BPD: 86 mm = 34 weeks 5 days HC: 319 mm = 35 weeks 6 days AC: 325 mm = 36 weeks 3 days FL: 16 a mm = 35 weeks 2 days EFW: 2788 grms 61% Composite Age: 35 weeks 4 days EDC: 08/01/2021 Heart Rate: 155BPM Amniotic fluid index: 20.2 cm. Visually, amount of fluid is within normal limits. IMPRESSION: 1. Single live intrauterine gestation as above. 2. Estimated weight is 2788gms. 3. Amniotic fluid index is 20.2 cm. Visually, within normal limits. DATA REPOSITORY:
== END 2021-07-01 02:15 ==
PROVIDERS: PCP Nurse Practitioner Adult Health; Visit Provider Advanced Practice Midwife
DX: O36.63X1 Maternal care for excessive fetal growth, third trimester, fetus 1 (principal); O26.843 Uterine size-date discrepancy, third trimester
CPT/HCPCS: 76816

== ENCOUNTER 2021-07-09 13:21 | Outpatient (REF) | payer BC, SELFPAY ==
[2021-07-09 14:07] LABS: *AMPHETAMINES SCREEN URINE Negative (Negative); *BARBITURATES SCREEN URINE Negative (Negative); *BENZODIAZEPINES SCREEN URINE Negative (Negative); Cannabinoids THC Negative (Negative); Cocaine Screen,Urine Negative (Negative); METHADONE URINE SCREEN Negative (Negative); OPIATES URINE SCREEN Negative (Negative)
[2021-07-09 14:08] LABS: Tricyclic Antidepressants Negative (Negative)
[2021-07-15 11:45] LABS: Buprenorphine Negative ng/mL (Cutoff: 5.0); Norbuprenorphine Negative ng/mL (Cutoff: 2.5)
== END 2021-07-09 13:22 | disposition home or self-care (01) ==
LOC: LBN 13:21
PROVIDERS: PCP Nurse Practitioner Adult Health; Visit Provider Advanced Practice Midwife
DX: Z34.93 Encounter for supervision of normal pregnancy, unspecified, third trimester (principal); Z3A.36 36 weeks gestation of pregnancy
CPT/HCPCS: 80307

== ENCOUNTER 2021-07-24 07:52 | Inpatient (IN) | payer BC, SELFPAY ==
[2021-07-24] VITALS (26 sets, daily range): BP systolic 109–164; BP diastolic 58–89; PULSE 71–108; RESP 16–20; TEMP 36.6–37.5; O2SAT 93–97
--- NOTE | 2021-07-24 08:01 | W.PM.OBHPL1 ---
Date of service: 07/24/21 Time of Service: 11:23 Assessment and Plan Assessment and plan (1) with 38 completed weeks gestation: Status: Acute (2) PROM with onset of labor within 24 hours of rupture: Status: Acute Assessment and plan: A: 36 yo @ 38+5 wks SROM clear confirmed, PROM x14 hrs, no HSV lesions on exam GBS negative; EFW 3700 gms, proven to 3200 Cephalic prominence presenting but out of pelvis, ROP per abd ultrasound Normotensive, afebrile, Category 1 tracing, Morales score 2, cervical ripening indicated Low risk for SD and PPH Anxiety disorder treated with sertraline 25 mg PO daily P: Admit to BC, T&S, CBC, COVID swab Begin misoprostel protocol Pt plans regional anesthesia Anticipate , Dr. 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 Pt was able to sleep for about 4 hours while waiting for contractions to begin, called CNM at 0715, states no contractions, baby is active, will be in to Center between [id number] for PROM confirmation and evaluation.. GINA Calculator Estimated Delivery Date Method Current WG Current Estimate 08/02/21 LMP (Certain) 38w 5d History of Present Expected Delivery Route/Plan - CNM FOB/ - Caleb BG GBS negative Rubella Non-Immune, give MMR issues with first child - pumped only- declines counseling. Prefers epidural for pain relief. Specific Issues/Plan 1. First trimester bleeding- normal US at 7 +3 weeks 2. Depression and post depression - zoloft 25 mg, seeing a counselor regularly. 3. Hx of gestational diabetes diet control, BMI greater than 30 - early [id number] 4. Had covid - 13 Aug 2020. Planning on COVID vaccine in 3rd trimester. Partner does not plan to get it. 5. Daughter has microcephaly, followed @ [facility] [place], small child overall, speech delays, no etiology ID'ed 5a. Offered & desires level 2 sono and MFM consult @ 19-20 wks, ordered, sched'ed for 03/12/21 5b. Normal anatomy scan at [facility] [place] 6. Desires SMA and [place] testing (drawn 01/11/21), known CF carrier neg. 6a. [place] result low prob x3, female; SMA carrier screen neg. Single marker AFP; neg for NTD 7. Vit D last year was low @ 17, taking 5,000 IU daily, recheck 01/11/21: level now 62, advised to decrease to 5,000 IU 2x/wk 8. TSH <0.01, T4 1.13, repeat in second trimester: result TSH 0.01/T4 1.14, will repeat with 28 wk labs-TSH 0.12/0.91 9. Rubella non-immune, will accept MMR vaccine 10. Doing 3 hour glucose at 28 weeks per patient hx and choice 10a. 3 hour test results: F90/ 1hr 172/ 2 hr 160 /3 hr 133 (WNL except 2 hr elevated) patient aware 11. Genital HSV - recommend valtrex at 36 weeks. Started 07/09 12. BV - treated with flagyl 13. Size greater than dates - US 07/01 EFW 61%ile, DARIN 20. 14. Insomnia - takes unisom nightly. Assessment: History Reviewed & Current Informed Consent Informed Consent: Induction of Labor (via cervical ripening) and Risk,Benefits,Alternatives Discussed Review of Systems All systems reviewed & are unremarkable except as noted in HPI and below Constitutional Constitutional: Reports as per HPI ENT Ears, Nose, Mouth, and Throat: Reports system reviewed and no additional complaints, except as documented Cardiovascular Cardiovascular: Reports system reviewed and no additional complaints, except as documented Respiratory Respiratory: Reports system reviewed and no additional complaints, except as documented Gastrointestinal Gastrointestinal: Reports system reviewed and no additional complaints, except as documented Genitourinary Genitourinary: Reports system reviewed and no additional complaints, except as documented Comments: water broke at 2100 last night, clear and pink tinged. Denies recent or current HSV lesions or symptoms Musculoskeletal Musculoskeletal: Reports back pain Comments: symphysis pain Integumentary/Breasts Skin/Breast: Reports system reviewed and no additional complaints, except as documented Psychiatric Psychiatric: Reports system reviewed and no additional complaints, except as documented and Reports anxiety (controlled with sertraline) [facility] Medical History (Updated 07/24/21 @ 08:02 by Edelmira Espinoza) Abnormal Pap smear of cervix (07/27/10) Ascus-POS HPV, colpo then all subsequent paps WNL Abnormal TSH 2017; normal 09/2019 ADHD Discontinued Vyvanse with 2020 Adult BMI 32.0-32.9 kg/sq m Anxiety Intermittent Sertraline Anxiety disorder, unspecified Reports Hx panic attacks, none since starting Sertraline, 10 years ago (approx 2009); increased anxiety since news of ; pt reduced dose to 25mg b/c , will discuss with PCP and OB, open to incr. dose again if current anxiety cont. Chronic cough (12/26/19) [facility] GI/Claude; RX Nexium 40mg daily resolved issue COVID-19 08/13/20 after travel to [place] Gastroesophageal reflux disease (12/26/19) [facility] GI/Claude Genital warts due to HPV (human papillomavirus) H/O gestational diabetes mellitus, not currently 2017 Hypertriglyceridemia 2020 >500 Large for dates affecting management of mother Miscarriage, threatened, early Overeating c/w binge eating d/o; started on vyvanse RX 05/2020, effective Panic attacks College (felt like [place]) Intermittently on Sertraline major depression in remission uterine contractions Round ligament pain Vaginal irritation Surgical History [place] teeth extracted (2007) Family History Brother Substance abuse Heroin, cocaine-in recovery at moment Paternal Grandmother Colon cancer Other Alcohol abuse Social History Smoking/Tobacco Use Status: Former Tobacco Use Quit Date: 09/25/13 Smoking risk assessment performed?: Yes Alcohol Intake: current Alcohol Intake frequency: holidays/special occasions only Details: none in Drug use: Never Substance use type: does not use Adopted: No Caregiver/Support person: No Foster care: No Household members: spouse and children Housing: house Number of Children: 1 Communication Needs: None Education Level: master's degree Do you need help understanding health information?: Rarely 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), [employer] Pets and animals: Yes (2 cats,and dogs) Pets and animals: cat(s) and dog(s) Sexually active: Yes Do you think of yourself as: straight/heterosexual Current gender identity: female What is your relationship status?: Panel score (0-1 are the most socially isolated patients): 1 What type of physical activity do you participate in: walking Duration: 30-45 minutes/day Frequency: 3-4 times per week Nirmala/Presybeterian: worship Seatbelt use: always Helmet use: Yes Drive intox or ride w/intox regional truck driver: No Water heater temp set <120 deg: Yes Working smoke detector in home: Yes Fire extinguisher in home: Yes Carbon monox detector in home: Yes Firearms in home: Yes Do you feel safe at home: Yes Do you feel safe in your relationship?: Yes Victim of physical abuse: No Victim of emotional abuse: No Victim of sexual abuse: No History History 2 Para 1 Hx # Term Pregnancies 0 Multiple births 0 Hx # Pregnancies 0 Ectopic pregnancies 0 AB induced 1 Hx Number of Living Children 1 AB spontaneous 0 Past Pregnancies Del. Date GA/Weeks # Outcome Route Wgt Sex Labor Lgth Anesthesia Location Prov Compl 10/22/18 39 No Successful vaginal 6 lb 3 oz Female 15 hrs. 37 min. jorge barba cnm Delivery Date: 10/22/18 hand presenting with face @ delivery. Baby had heart murmur and microcephaly. Speech delays. Jorge Barba Meds Allergies and Home Medications Allergies Allergy/AdvReac Type Severity Reaction Status Date / Time No Known Allergies Allergy Verified 07/23/21 15:23 Home Medications Medication Instructions Recorded Confirmed Type doxylamine succinate 25 mg tablet 12.5 mg PO QHS PRN tab 12/17/20 07/24/21 History cholecalciferol (vitamin D3) 50 50 mcg PO DAILY 02/10/21 07/24/21 History mcg (2,000 unit) capsule prenat.vits,maya,uhl-cfne-exdhu 1 tab PO DAILY 04/07/21 07/24/21 History sertraline 50 mg tablet 25 mg PO DAILY #90 tab-cap 04/07/21 07/24/21 Rx albuterol sulfate [Proventil HFA] 1 - 2 puff IH Q4H PRN PRN 06/30/21 07/24/21 History valacyclovir 500 mg tablet 500 mg PO DAILY #90 tab 07/09/21 07/24/21 Rx Exam Physical Exam Vital signs: 118/62, P-98, temp 98.1 Vital Signs Reviewed: Yes Constitutional Constitutional: no acute distress Detailed Labor and Delivery Exam Dilation: 1 Effacement (%): 0 station: -4 Position: ROP (confirmed by bedside ultrasound) Cervix position: posterior Consistency: medium MORALES Score(Cervical Ripeness Score): 2 Amniotic Membrane Status: Ruptured (gross rupture observed upon admission) Rupture Method: Spontaneous Amniotic Fluid: Clear Pooling: Positive Nitrazine: Positive Ferning: Present Monitor Mode: External Contraction Frequency(min): mild uterine irritability Contraction Intensity: Mild Fetus A Heart Rate Baseline: 145 Monitor Accelerations: 15 X 15 Monitor Decelerations: None Variability: Moderate (6-25 BPM) Presentation: Cephalic Categories: Category I Est. Weight: 8 lb 2.514 oz Est. Weight: 3700 gms Date of Membrane Rupture: 07/23/21 Time of Membrane Rupture: 21:00 HEENT Exam HEENT Exam: Normal Neck Exam Neck Exam: Normal Chest/Brest/Axilla Exam Chest Exam: Normal Breast Exam Breast Exam: Not Done Respiratory Exam Respiratory Exam: Normal Cardiovascular Exam Cardiovascular Exam: Normal Abdominal Exam Abdominal Exam: Normal (Gravid) Rectal Exam Rectal Exam: Normal Exam Exam: Normal Extremities Exam Extremities Exam: Normal Back/Spine/Pelvis Exam Back Exam: Normal Pelvis Adequate: Yes (proven to 7'3) Skin Exam Skin Exam: Normal Neurological Exam Neurological Exam: Normal Psychiatric Exam Psychiatric Exam: Normal Results Results Group Beta Strep: Negative Blood Type: B+ Rubella Status: Nonimmune Varicella Immunity: Immune Risk Assessment Risk for Shoulder Dystocia Historical/Initial OB: POSITIVE FOR: Pre- BMI>30; NEGATIVE FOR: Pelvic Abnormality, Previous Shoulder Dystocia or Previous Macrosomia Counseling: S>D at 35 wks: EFW In 61st percentile with DARIN 20 Delivery Plan @ 36wks: spont labor, Risk for Pre-Eclampsia Daily Dose ASA Indicated: No Date Initiated/Initials: not indicated. JK Yes, if one or more: NEGATIVE FOR: Hx Pre-E/Gest HTN, Chronic HTN, Multiple Gestation, Pre-gestational DM, Renal Disease, Systemic Lupus or APA Syndrome Yes, if 2 or more: POSITIVE FOR: BMI>30; NEGATIVE FOR: Nulliparity, Age>= 35 yrs, >10yr btwn pregnancies, ethinicty, Mother/Sister w/ Pre-E or Previous IUGR Risk for Post- Hemorrhage Initial: NEGATIVE FOR: Multiple Gestation, Previous PPH, Known Clotting Deficiency, Grand Multiparity or Anticoagulation At Risk?: No Counseled re: Active Management: Yes Risks Reviewed Risks Reviewed Upon Admission: Yes
[2021-07-24 10:49] LABS: Source Nasal/Nares
[2021-07-24 11:49] LABS: COVID-19 PCR Negative (Negative)
[2021-07-24] MEDS: miSOPROStol 25 MCG TAB 50 MCG PO (12:02)
[2021-07-24 12:14] LABS: HCT 36.9 % (36.0-46.0); HGB 12.3 g/dL (11.2-15.7); MCH 30.8 pg (27.0-33.0); MCHC 33.3 % (32.0-36.0); MCV 92.5 fL (80-95); MPV 10.9 fL (8.0-11.0); Platelet Count 206 10^3/uL (130-400); RBC 3.99 10^6/uL (3.93-5.22); RDW 13.5 % (11.7-14.6); RDW-SD 46.1 fL; WBC 9.54 10^3/uL (4.4-10.8)
--- NOTE | 2021-07-24 15:46 | PGE_ITS ---
Date of service: 07/24/21 Time of Service: 15:46 Pelvic Exam Dilation: 3 Effacement (%): 90 station: -3 Position: ROP Cervix Position: mid Consistency: soft Vaginal Exam Presentation: Cephalic Contractions Monitor Mode: External Contraction Frequency(min): q 2-3 Intensity: Moderate Fetus A Monitor: External (US) Heart Rate Baseline: 150 Variability: Moderate (6-25 BPM) Categories: Category I Accelerations: 15 X 15 Decelerations: None Amniotic Membrane Status: Ruptured Assessment and Plan Assessment and plan (1) PROM with onset of labor within 24 hours of rupture: Status: Acute Assessment and plan: A: multipara, PROM x18 hrs excellent response to initial miso 50 mcg dose early labor with cvx @ 3/90% vtx -3, contrx q 2-3 minutes category 1 tracing P: Continue using nitrous and comfort measures as needed Regional anesthesia when pt requests, SUSTAINABLE AGRICULTURE SPECIALIST briefed on pt's status Hold further misoprostel dosing Anticipate Qualifiers: PROM gestational age: full term Qualified Code(s): O42.02 - Full-term premature rupture of membranes, onset of labor within 24 hours of rupture Objective Temp Pulse Resp BP Pulse Ox 98.1 F 80 20 144/68 H 97 07/24/21 15:43 07/24/21 15:43 07/24/21 15:43 07/24/21 15:43 07/24/21 10:50 Laboratory Results WBC 9.54 10^3/uL (4.4-10.8) 07/24/21 11:55 RBC 3.99 10^6/uL (3.93-5.22) 07/24/21 11:55 Hgb 12.3 g/dL (11.2-15.7) 07/24/21 11:55 Hct 36.9 % (36.0-46.0) 07/24/21 11:55 MCV 92.5 fL (80-95) 07/24/21 11:55 MCH 30.8 pg (27.0-33.0) 07/24/21 11:55 MCHC 33.3 % (32.0-36.0) 07/24/21 11:55 RDW 13.5 % (11.7-14.6) 07/24/21 11:55 Plt Count 206 10^3/uL (130-400) 07/24/21 11:55 MPV 10.9 fL (8.0-11.0) 07/24/21 11:55 COVID-19 Source Nasal/Nares 07/24/21 10:40 SARS-CoV-2 (PCR) Negative (Negative) 07/24/21 10:40 Patient ABO/Rh B Positive 07/24/21 11:55 Antibody Screen NEGATIVE 07/24/21 11:55 Vital Signs Reviewed: Yes Subjective Interval history since last seen: Lower abdominal discomfort with contractions has increased since first dose of misoprostel was given. Using nitrous inhalant for pain management.
--- NOTE | 2021-07-24 16:43 | PGE_ITS ---
Date of service: 07/24/21 Time of Service: 16:43 Informed Consent Informed Consent: Regional Anesthesia and Risk,Benefits,Alternatives Discussed Pelvic Exam Dilation: 5 Effacement (%): 100 station: -2 Position: ROP Cervix Position: mid Consistency: soft Assessment and Plan Assessment and plan (1) PROM with onset of labor within 24 hours of rupture: Status: Acute Assessment and plan: A: Active labor, using nitrous Desires regional anesthesia P: REFERRAL CLERK notified and en route IV bolus infusing May be good candidate for intrathecal anesthesia this afternoon Qualifiers: PROM gestational age: full term Qualified Code(s): O42.02 - Full-term premature rupture of membranes, onset of labor within 24 hours of rupture Objective Vital Signs Reviewed: Yes Subjective Interval history since last seen: Desires regional anesthesia now, feeling large amount of pelvic pressure Interventions Pain Management Interventions: Nitrous Oxide , pt using with good effect . Results Hemoglobin/Hematocrit: Hgb 12.3 g/dL (11.2-15.7) 07/24/21 11:55 Hct 36.9 % (36.0-46.0) 07/24/21 11:55 Procedure Procedures: Cervical Ripening Cervical Ripening: Misoprostol (one dose given at noon, 50 mcg PO)
[2021-07-24] MEDS: Oxytocin 10 UNITS/ML VIAL IM (17:18)
--- NOTE | 2021-07-24 17:52 | W.OBDELIVERY ---
Date of service: 07/24/21 Time of Service: 17:52 OB Labor/ Delivery Information Baby A Delivery Delivery Method: Spontaneaous Presentation: Cephalic Cephalic Position: Vertex Vertex Position: Right Occipital Anterior Breech Position: N/A Cord Description-Baby A: 3 Vessels Amniotic Fluid: Clear Estimated Blood Loss: 350 Delivery Outcome: Liveborn Infant Transferred: Remains with Mother Note: Pt became increasingly uncomfortable shortly after receiving a single dose of misoprostel at noon, SVE 3 cm by 1500, pt effectively using nitrous and thinking she would be requesting regional anesthesia soon. By 1540 IV access was started and DEPARTMENT CLINICIAN was paged to come, SVE 5/100% vtx -2. However, as preparations for intrathecal were being made pt's IV came out. SVE done for 8cm, vtx -2/-1, DEPARTMENT CLINICIAN then restarted the IV but pt was by then involuntarily pushing. SVE done for complete dilation and vtx at the perineum, anesthesia placement abandoned and 2nd stage huddle completed. Using nitrous inhalant of a vigorous female accomplished, right nuchal hand noted and arm supported to minimize tearing, shoulders came easily. Infant initially bulb suctioned and dried on field until pt was ready to receive , then placed in her arms. Cord ceased pulsating, was clamped then cut by FOB, cord blood collected. Pitocin 10 units IM was given, IV access not satisfactory so no bolus was given. First degree vaginal floor laceration stabilized with one interrupted stitch of 3.0 Vicryl, edges well approximated. Fundus firm at umbilicus, min rubra noted without clots, excellent family bonding observed, apgars 7/8, weight 3420 gms. Providers Nurse Code And Test Clerk: Edelmira Espinoza Telesales Advisor: Marlys Obrien Nurse: Murtaza Briseno Nurse: Ene Dominguez Other: Page -Fine Arts Packer Labor/Delivery Information Number of Babies in Womb: 1 Reason Steroids Not Administered: N/A Group Beta Strep: Negative Antibiotics Administered: No Rubella Status: Nonimmune Blood Type: B+ Varicella Immunity: Immune Maternal Complications: None Shoulder Dystocia: No Stages of Labor Onset of Labor Date: 07/24/21 Onset of Labor Time: 12:30 Complete Dilatation Date: 07/24/21 Complete Dilatation Time: 17:06 Labor - Stage 1 Duration: 0 minutes ROM Baby A: 07/23/21 ROM Baby A: 21:00 Delivery Date-Baby A: 07/24/21 Delivery Time-Baby A: 17:15 Labor Stage 2 Duration: 9 minutes Placenta Delivery Date-Baby A: 07/24/21 Placenta Delivery Time-Baby A: 17:25 Labor-Stage 3 Duration: 10 minutes Total Length of Labor-Baby A: 4 hours and 45 minutes Placenta Status: Delivered Baby A Infant Gender: Female Gestational Status: Early Term (37-38.6 wks) Gestational Age in Weeks/Days: 38 Weeks and 5 Days weight: 7 lb 8.637 oz Weight Comment: 3420 gms Score-1 Minute Interval(Baby A) Heart Rate-1 minute: 100 BPM or Greater Respiratory Effort- 1 minute: Spontaneous/Strong Cry Muscle Tone-1 minute: Minimal Flexion/Extension Reflex Response-1 minute: Minimal Response Color-1 minute: Bluish Hands or Feet Total Score-1 minute: 7 Score-5 Minute Interval(Baby A) Heart Rate- 5 minute: 100 BPM or Greater Respiratory Effort-5 minute: Spontaneous/Strong Cry Muscle Tone-5 minute: Active Movement Reflex Response-5 minute: Minimal Response Color-5 minute: Bluish Hands or Feet Total Score- 5 minute: 8 Hemorrrhage Note Total Blood Loss for PPH Event Quantitative Blood Loss: 350
[2021-07-24] MEDS: Acetaminophen 325 MG TAB 650 MG PO (19:08)
[2021-07-24] MEDS: Ibuprofen 600 MG TAB PO (19:08)
[2021-07-24] MEDS: miSOPROStol 100 MCG TAB 600 MCG PO (19:09)
[2021-07-24] MEDS: Normal Saline Flush 10 ML SYR IVP (19:13)
[2021-07-24] MEDS: Sertraline 50 MG TAB 25 MG PO (20:00)
[2021-07-25 01:00] VITALS: BP 108/64
[2021-07-25] MEDS: Acetaminophen 325 MG TAB 650 MG PO ×2 (04:54→10:44)
[2021-07-25] MEDS: Ibuprofen 600 MG TAB PO ×2 (04:54→10:44)
[2021-07-25 07:06] LABS: HCT 37.5 % (36.0-46.0); HGB 12.3 g/dL (11.2-15.7); MCH 30.1 pg (27.0-33.0); MCHC 32.8 % (32.0-36.0); MCV 91.9 fL (80-95); MPV 11.2 fL (8.0-11.0); Platelet Count 196 10^3/uL (130-400); RBC 4.08 10^6/uL (3.93-5.22); RDW 13.6 % (11.7-14.6); WBC 12.31 10^3/uL (4.4-10.8)
[2021-07-25 08:35] VITALS: BP 118/77; PULSE 69; RESP 16; TEMP 36.7; O2SAT 97
[2021-07-25] MEDS: Docusate Sodium 100 MG CAP PO (08:53)
--- NOTE | 2021-07-25 08:55 | W.PM.OBPNV1 ---
Date of service: 07/25/21 Time of Service: 09:36 Assessment and Plan Assessment and plan (1) Term delivered: Status: Acute Assessment and plan: A: PPD#1, nml recovery Hgb 12.3 this morning well Processing experience, disappointed she didn't have regional anesthesia P: MMR vaccine today Appropriate for discharge to home perhaps later today per Peds Plan for f/up at 2 & 6 wks Encourage discussion and review of events as needed Pt is undecided about BCM, possibly vasectomy Subjective Subjective Patient comments: Pain well controlled, Tolerating diet and Flatus present baby status: Doing well, Nursing well, Rooming in and Strong Bonding Observed feeding status: Exclusively breast feeding and Pumping and bottle feeding Exam Physical Exam Vital signs: Temp Pulse Resp BP Pulse Ox 98.8 F 81 18 108/64 93 07/25/21 01:00 07/25/21 01:00 07/25/21 01:00 07/25/21 01:00 07/24/21 17:00 Vital Signs Reviewed: Yes Constitutional Constitutional: no acute distress HEENT Exam HEENT Exam: Normal Neck Exam Neck Exam: Normal Breast Exam Bilateral: Breast Exam: Normal and Soft Nipple Exam: Normal and Uninjured Respiratory Exam Respiratory Exam: Normal Cardiovascular Exam Cardiovascular Exam: Normal Abdominal Exam Abdomen: Other (soft, nontender) Fundal Exam Fundus: Below Umbilicus (more commonly at umbilicus) and Firm Rectal Exam Rectal Exam: Normal Exam Perineum: Normal and Repair Intact Extremities Exam Extremity Exam: Normal and Full ROM Back/Spine/Pelvis Exam Back Exam: Normal Skin Exam Skin Exam: Normal Neurological Exam Neurological Exam: Normal Psychiatric Exam Psychiatric Exam: Normal Results Hemoglobin/Hematocrit: Hgb 12.3 g/dL (11.2-15.7) 07/25/21 06:15 Hct 37.5 % (36.0-46.0) 07/25/21 06:15 Abnormal Lab Findings: Abnormal Labs 07/25/21 06:15 WBC 12.31 H MPV 11.2 H
--- NOTE | 2021-07-25 09:42 | DSE_ITS ---
Date of service: 07/25/21 Time of Service: 09:42 DS: Diagnosis Discharge Diagnosis (1) Term delivered: Status: Acute Discharge Plan Disposition Patient Disposition: HOME Condition: Good Discharge Details Reason For Visit: PROM AT TERM Admit Date/Time: 07/24/21 07:52 Admit Provider: Edelmira Espinoza Attending Provider: Edelmira Espinoza Primary Care Provider: Amalia Dominguez Hospital Course Hospital Course: Induction via cervical ripening, 4 hr labor, , desires discharge at 24 hrs , nml course. Home Meds and New Rx's Prescriptions: No Action prenat.vits,maya,[id number]-[id number] Tablet 1 tab PO DAILY RF: 0 sertraline [Zoloft] 50 mg tablet 25 mg PO DAILY Qty: 90 RF: 1 Unisom (doxylamine) 25 mg tablet 12.5 mg PO QHS PRNRF: 0 cholecalciferol (vitamin D3) 50 mcg (2,000 unit) capsule 50 mcg PO DAILY RF: 0 albuterol sulfate [Proventil HFA] 90 mcg/actuation HFA aerosol inhaler 1 - 2 puff IH Q4H PRN PRN (Reason: shortness of breath or wheezing) RF: 0 Discharge Instructions Additional Instructions: Please call [phone] to make your 2 and 6 week clerk appointments. Call for any questions or concerns at any time. Stand Alone Forms: BC Instructions, NB [place] Instructions, BC Post Vaginal Deliver Activity:: Activity as Tolerated Equipment/Supplies:: No Equipment Needed Diet:: Normal Diet Discharge Orders Discharge Orders: Discharge Order (Routine); Ordered 07/25/21 Ordered By: Edelmira Espinoza OB:DS Summary Summary Vaginal Delivery Method: Spontaneaous Laceration Extension: First Degree Contraception Discussed Contraception Discussed: Yes Contraceptive Plan: Vasectomy, Gender-Baby A: Female weight: 7 lb 8.637 oz Status at Discharge Functional status at discharge: independent ambulation Overall status at discharge: patient is progressing back to baseline Mental Status: mental status grossly normal Speech and Movement: speech and movement normal and speech clear Mood: congruent mood Affect: normal affect Exam Physical Exam Vital signs: Temp Pulse Resp BP Pulse Ox 98.1 F 69 16 118/77 97 07/25/21 08:35 07/25/21 08:35 07/25/21 08:35 07/25/21 08:35 07/25/21 08:35 Constitutional Constitutional: no acute distress HEENT Exam HEENT Exam: Normal Neck Exam Neck Exam: Normal Breast Exam Bilateral: Breast Exam: Normal and Soft Respiratory Exam Respiratory Exam: Normal Cardiovascular Exam Cardiovascular Exam: Normal Abdominal Exam Abdomen: Other (soft, nontender) Fundal Exam Fundus: Below Umbilicus (more commonly at umbilicus) and Firm Rectal Exam Rectal Exam: Normal Exam Perineum: Normal and Repair Intact Extremities Exam Extremity Exam: Normal and Full ROM Back/Spine/Pelvis Exam Back Exam: Normal Skin Exam Skin Exam: Normal Neurological Exam Neurological Exam: Normal Psychiatric Exam Psychiatric Exam: Normal [facility] Medical History (Updated 07/25/21 @ 09:40 by Edelmira Espinoza) Abnormal Pap smear of cervix (07/27/10) Ascus-POS HPV, colpo then all subsequent paps WNL Abnormal TSH 2017; normal 09/2019 ADHD Discontinued Vyvanse with 2020 Adult BMI 32.0-32.9 kg/sq m Anxiety Intermittent Sertraline Anxiety disorder, unspecified Reports Hx panic attacks, none since starting Sertraline, 10 years ago (approx 2009); increased anxiety since news of ; pt reduced dose to 25mg b/c , will discuss with PCP and OB, open to incr. dose again if current anxiety cont. Chronic cough (12/26/19) [facility] [place] [facility] GI/Claude; RX Nexium 40mg daily resolved issue COVID-19 08/13/20 after travel to [place] Gastroesophageal reflux disease (12/26/19) [facility] GI/Claude Genital warts due to HPV (human papillomavirus) H/O gestational diabetes mellitus, not currently 2017 History of gestational diabetes in prior , currently Hypertriglyceridemia 2020 >500 Large for dates affecting management of mother Miscarriage, threatened, early Overeating c/w binge eating d/o; started on vyvanse RX 05/2020, effective Panic attacks College (felt like [place]) Intermittently on Sertraline major depression in remission with 38 completed weeks gestation uterine contractions PROM with onset of labor within 24 hours of rupture Round ligament pain Vaginal irritation Surgical History [place] teeth extracted (2007) Family History Brother Substance abuse Heroin, cocaine-in recovery at moment Paternal Grandmother Colon cancer Other Alcohol abuse Social History Smoking/Tobacco Use Status: Former Tobacco Use Quit Date: 09/25/13 Smoking risk assessment performed?: Yes Alcohol Intake: current Alcohol Intake frequency: holidays/special occasions only Details: none in Drug use: Never Substance use type: does not use Adopted: No Caregiver/Support person: No Foster care: No Household members: spouse and children Housing: house Number of Children: 1 Communication Needs: None Education Level: master's degree Do you need help understanding health information?: Rarely 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 Date GA/Weeks # Outcome Route Wgt Sex Labor Lgth Anesthes ia Location Prov Compl 10/22/18 39 No Successful vaginal 6 lb 3 oz Female 15 hrs. 37 min. jorge barba cnm Delivery Date: 10/22/18 hand presenting with face @ delivery. Baby had heart murmur and microcephaly. Speech delays. Jorge Barba DS: Data Vitals/I&O Vitals and I&O: Vital Signs Temperature 98.1 F 07/25/21 08:35 Pulse 69 07/25/21 08:35 Pulse Rhythm Regular 07/25/21 08:35 Respiratory Rate 16 07/25/21 08:35 Blood Pressure 118/77 07/25/21 08:35 Blood Pressure Mean 90 07/25/21 08:35 Pulse Oximetry 97 07/25/21 08:35 Oxygen Delivery Method Room Air 07/24/21 10:56 Oxygen Flow Rate 0 07/24/21 10:56 Pain Level 3 07/25/21 08:35 Intake & Output 07/24/21 07/24/21 07/25/21 11:59 23:59 11:59 Intake Total 500 / 500 550 / 550 Output Total 475 / 475 1200 / 1200 Balance -650 / -650 Weight 218 lb Intake: Oral 500 / 500 550 / 550 Output: Urine 475 / 475 1200 / 1200 Other: Urine Color Light Sandra Light Sandra Urine Appearance Clear Clear Urine Odor None None Comment straight cath'd for 350 cc's Voiding Methods Toilet Toilet Data Completed and Pending Labs on day of discharge: Labs from last 24 hours 07/25/21 07/24/21 07/24/21 06:15 11:55 11:55 WBC 12.31 H 9.54 RBC 4.08 3.99 Hgb 12.3 12.3 Hct 37.5 36.9 MCV 91.9 92.5 MCH 30.1 30.8 MCHC 32.8 33.3 RDW 13.6 13.5 Plt Count 196 206 MPV 11.2 H 10.9 COVID-19 Source SARS-CoV-2 (PCR) Patient ABO/Rh B Positive Antibody Screen NEGATIVE 07/24/21 10:40 WBC RBC Hgb Hct MCV MCH MCHC RDW Plt Count MPV COVID-19 Source Nasal/Nares SARS-CoV-2 (PCR) Negative Patient ABO/Rh Antibody Screen
[2021-07-25] MEDS: Measles, Mumps, & Rubella Vaccine 0.5 ML VIAL SC (10:45)
[2021-07-25 16:35] VITALS: BP 119/73; PULSE 68; RESP 16; TEMP 36.5; O2SAT 98
--- NOTE | 2021-07-25 17:22 | NUR.NOTE ---
07/25/21 12:10 Asked patient how her she felt her delivery went. Patient states she never wants to go through that again, felt it was taking too long to get the epidural but that it really wasn't anyone's fault. Patient did not get emotional or teary eyed while talking about the delivery. Was thankful for everyone's support.
[2021-07-25 19:30] VITALS: BP 103/65; PULSE 95; RESP 18; TEMP 36.6
[2021-07-25] MEDS: Sertraline 50 MG TAB 25 MG PO (20:00)
[2021-07-26] MEDS: Acetaminophen 325 MG TAB 650 MG PO (06:18)
[2021-07-26] MEDS: Ibuprofen 600 MG TAB PO (06:18)
[2021-07-26] MEDS: Docusate Sodium 100 MG CAP PO (06:18)
[2021-07-26 07:30] VITALS: BP 120/77; PULSE 85; RESP 15; TEMP 36.4; O2SAT 98
== END 2021-07-26 08:50 | disposition home or self-care (01) | DRG 806 ==
PROVIDERS: Admitting Provider Advanced Practice Midwife; PCP Nurse Practitioner Adult Health; Visit Provider Advanced Practice Midwife
DX: O42.02 Full-term premature rupture of membranes, onset of labor within 24 hours of rupture (principal); O98.32 Other infections with a predominantly sexual mode of transmission complicating childbirth; Z37.0 Single live birth; O71.4 Obstetric high vaginal laceration alone; Z3A.38 38 weeks gestation of pregnancy; A60.00 Herpesviral infection of urogenital system, unspecified; O99.344 Other mental disorders complicating childbirth; F41.8 Other specified anxiety disorders; O36.63X0 Maternal care for excessive fetal growth, third trimester, not applicable or unspecified; G47.00 Insomnia, unspecified; Z86.16 Personal history of COVID-19; F90.9 Attention-deficit hyperactivity disorder, unspecified type; K21.9 Gastro-esophageal reflux disease without esophagitis; O99.62 Diseases of the digestive system complicating childbirth
CPT/HCPCS: 36415; 85027; 86850; 86900; 86901; 87635; J2590; J3490

== ENCOUNTER 2022-03-16 02:11 | Outpatient (CLI) | payer BC, SELFPAY ==
[2022-03-16 08:28] LABS: Calculated LDL 185 mg/dL (<100); Cholesterol 256 mg/dL (<200); HDL Cholesterol 57 mg/dL (40-60); Triglyceride 74 mg/dL (<150)
== END 2022-03-16 02:12 | disposition home or self-care (01) ==
LOC: LBO 02:11
PROVIDERS: PCP Nurse Practitioner Adult Health; Visit Provider Nurse Practitioner Adult Health
DX: E78.1 Pure hyperglyceridemia (principal); E55.9 Vitamin D deficiency, unspecified
CPT/HCPCS: 36415; 80061; 82306

== ENCOUNTER 2022-06-08 01:39 | Outpatient (CLI) | payer BC, SELFPAY ==
[2022-06-08 07:41] LABS: Calculated LDL 123 mg/dL (<100); Cholesterol 201 mg/dL (<200); HDL Cholesterol 60 mg/dL (40-60); Triglyceride 92 mg/dL (<150)
== END 2022-06-08 01:40 | disposition home or self-care (01) ==
LOC: LBO 01:39
PROVIDERS: PCP Nurse Practitioner Adult Health; Visit Provider Nurse Practitioner Adult Health
DX: E78.5 Hyperlipidemia, unspecified (principal)
CPT/HCPCS: 36415; 80061

== ENCOUNTER 2022-12-31 21:14 | Emergency (ER) | payer BC, SELFPAY ==
[2022-12-31] VITALS (11 sets, daily range): BP systolic 125; BP diastolic 86; PULSE 93–118; RESP 14–26; O2SAT 95–99
--- NOTE | 2022-12-31 21:15 | RT.EKG_ITS ---
APPROVED REPORT Exam: Resting ECG Reason for Exam: rapid heart rate Patient Location: E HR:106 bpm ECG Measurements Heart Rate 106 AXIS MT 128 P 50 QRSd 94 QRS 3 QT 336 T [id number] QTc 447 Conclusion Sinus tachycardia...rate> 99 Probable LVH with secondary repol abnrm...multiple LVH criteria Narrow complex sinus tachycardia at a rate of 106. Normal axis. Intervals within normal limits. T wave flattening in leads aVL, III and aVF. Poor R wave progression. Left axis deviation no signs of LVH. No ST segment abnormalities. No acute injury pattern. No prior for comparison.
--- NOTE | 2022-12-31 21:29 | W.ED.GENAD ---
Discharge Plan Disposition Patient Disposition: Home Condition: Stable Discharge Details Clinical Impression: Palpitations, Hypomagnesemia, Hypokalemia Primary Care Provider: Amalia Dominguez ED Provider: Libia Baez Home Meds and New Rx's Prescriptions: Continued multivitamin Tablet 1 tab PO DAILY cholecalciferol (vitamin D3) 50 mcg (2,000 unit) capsule 50 mcg PO DAILY clotrimazole 1 % cream 1 applic topical BID PRN (Reason: yeast rash) Qty: 45 1RF Rx Instructions: apply liberal amount to rash affecting chest skin 2x/d until resolved, may repeat if returns lisdexamfetamine 50 mg capsule 50 mg PO QAM MDD 50mg/24hr Qty: 28 0RF albuterol sulfate [Proventil HFA] 90 mcg/actuation HFA aerosol inhaler 1 - 2 puff IH Q4H PRN PRN (Reason: shortness of breath or wheezing) Qty: 1 0RF Rx Instructions: dispense with spacer; any brand albuterol ok lisdexamfetamine 50 mg capsule 50 mg PO QAM MDD 50mg/24h Qty: 28 0RF Vyvanse 50 mg capsule 50 mg PO QAM MDD 50mg/24h Qty: 28 0RF omega-3 fatty acids-vitamin E 1,000 mg Capsule 1XD red yeast rice 600 mg Capsule 600 mg PO DAILY Rx Instructions: give with meal/snack sertraline [Zoloft] 50 mg Tablet 50 mg PO DAILY Discharge Instructions Instructions: Heart Palpitations (ED), Hypokalemia (ED), Hypomagnesemia (ED) Additional Instructions: At this time your lab work shows mildly low magnesium and potassium. This may be a cause of your symptoms. Please increase foods that contain magnesium and potassium over the next few days. Increase oral fluids. Follow up with primary care provider in 3-5 days. Return to ED sooner if any worsening or concerns. Increase oral fluids. Referrals: Amalia Dominguez, PUTTY REMOVER [Primary Care Provider] - 5 days Medical Decision Making 37-year-old female presents to the ER with a chief complaint of weakness, fast heart rate palpitations which began this afternoon. She reports that she has been laying on the couch all day. This felt like flulike symptoms. Checked her heart rate on her Apple Watch and it reported atrial fibrillation. She does have a past medical history of hyperlipidemia, depression obesity, GERD nicotine dependence. She does take Vyvanse and Zoloft. EKG was reviewed by Dr. Flores ER attending, please see his official report. There is no old EKG available for review. Basic labs ordered including a TSH, liter of normal saline. CBC shows no leukocytosis, absolute neutrophil 7.86, sodium 135 potassium 3.2, magnesium 1.6 TSH within normal limits 0.75 troponin less than 50, urinalysis shows trace blood moderate leukocytes 10-20 WBCs however there is squamous contamination and culture is not indicated at this time. Urine drug screen is negative except for amphetamines which patient is taking. I did discuss results with patient and verbalized understanding. Was given 400 mg of magnesium oxide p.o. here in the department and 40 mill equivalents of potassium p.o. Was given a liter of normal saline. Discussed home care strict return instructions and follow-up care she verbalized understanding. Patient remained hemodynamically stable throughout the remainder of her stay. This text was generated using [email or web address] system, please disregard any oddities of phrase or misspellings. Medical Records Medical records reviewed: Yes I reviewed the patient's medical records. Lab Data Lab results reviewed: Yes I reviewed the patient's lab results. Labs: Laboratory Tests Range/Units 12/31/22 12/31/22 12/31/22 21:30 21:30 21:45 WBC (4.4-10.8) 10^3/uL 9.14 RBC (3.93-5.22) 10^6/uL 4.50 Hgb (11.2-15.7) g/dL 13.7 Hct (36.0-46.0) % 40.6 MCV (80-95) fL 90 MCH (27.0-33.0) pg 30.4 MCHC (32.0-36.0) % 33.7 RDW (11.7-14.6) % 12.1 Plt Count (130-400) 10^3/uL 287 MPV (8.0-11.0) fL 10.2 Immature Gran % 0.3 Neutrophils % 86.0 Lymphocytes % 7.7 Monocytes % 5.1 Eosinophils % 0.7 Basophils % 0.2 Nucleated RBC % (0.0-0.3) % 0.0 Absolute Neutrophils (1.2-6.7) 10^3/uL 7.86 H Absolute Lymphocytes (1.2-3.4) 10^3/uL 0.70 L Absolute Monocytes (0.1-0.8) 10^3/uL 0.47 Absolute Eosinophils (0.0-0.7) 10^3/uL 0.06 Absolute Basophils (0.0-0.2) 10^3/uL 0.02 Sodium (136-145) mmol/L 135 L Potassium (3.5-5.1) mmol/L 3.2 L Chloride (98-107) mmol/L 101 Carbon Dioxide (21.0-32.0) mmol/L 23.6 Anion Gap (3-11) mmol/L 10.4 BUN (7-18) mg/dL 9 Creatinine (0.55-1.02) mg/dL 0.7 Est GFR (CKD-EPI 2020) (mL/min/1.73m2) 115.59 Glucose (74-106) mg/dL 103 Calcium (8.5-10.1) mg/dL 8.6 Magnesium (1.8-2.4) mg/dL 1.6 L Total Bilirubin (0.2-1.0) mg/dL 0.6 AST (15-37) U/L 12 L ALT (14-59) U/L 19 Alkaline Phosphatase (46-116) U/L 86 Troponin I (<or=60) ng/L < 50 Total Protein (6.4-8.2) g/dL 7.0 Albumin (3.4-5.0) g/dL 3.5 TSH (0.36-3.74) uIU/mL 0.75 Urine Color (Yellow) Urine Clarity (Clear) Urine pH (5-8) Ur Specific [place] (1.005-1.025) Urine Protein (Negative) mg/dL Urine Ketones (Negative) mg/dL Urine Blood (Negative) Urine Nitrite (Negative) Urine Bilirubin (Negative) Urine Urobilinogen (Up to 0.2) mg/dL Ur Leukocyte Esterase (Negative) Urine RBC (0-2) HPF Urine WBC (0-5) HPF Ur Epithelial Cells (Negative) HPF Urine Crystals (Negative) HPF Urine Bacteria (Negative) HPF Urine Casts (Negative) LPF Urine Mucus (Negative) Urine Other (Negative) Ur Culture Indicated? Urine Glucose (Negative) mg/dL Urine Opiates Screen (Negative) Negative Urine Methadone Screen (Negative) Negative Ur Barbiturates Screen (Negative) Negative Ur Tricyclics Screen (Negative) Negative Ur Amphetamines Screen (Negative) Positive A U Benzodiazepines Scrn (Negative) Negative Urine Cocaine Screen (Negative) Negative Ur THC Screen (Negative) Negative Range/Units 12/31/22 21:45 WBC (4.4-10.8) 10^3/uL RBC (3.93-5.22) 10^6/uL Hgb (11.2-15.7) g/dL Hct (36.0-46.0) % MCV (80-95) fL MCH (27.0-33.0) pg MCHC (32.0-36.0) % RDW (11.7-14.6) % Plt Count (130-400) 10^3/uL MPV (8.0-11.0) fL Immature Gran % Neutrophils % Lymphocytes % Monocytes % Eosinophils % Basophils % Nucleated RBC % (0.0-0.3) % Absolute Neutrophils (1.2-6.7) 10^3/uL Absolute Lymphocytes (1.2-3.4) 10^3/uL Absolute Monocytes (0.1-0.8) 10^3/uL Absolute Eosinophils (0.0-0.7) 10^3/uL Absolute Basophils (0.0-0.2) 10^3/uL Sodium (136-145) mmol/L Potassium (3.5-5.1) mmol/L Chloride (98-107) mmol/L Carbon Dioxide (21.0-32.0) mmol/L Anion Gap (3-11) mmol/L BUN (7-18) mg/dL Creatinine (0.55-1.02) mg/dL Est GFR (CKD-EPI 2020) (mL/min/1.73m2) Glucose (74-106) mg/dL Calcium (8.5-10.1) mg/dL Magnesium (1.8-2.4) mg/dL Total Bilirubin (0.2-1.0) mg/dL AST (15-37) U/L ALT (14-59) U/L Alkaline Phosphatase (46-116) U/L Troponin I (<or=60) ng/L Total Protein (6.4-8.2) g/dL Albumin (3.4-5.0) g/dL TSH (0.36-3.74) uIU/mL Urine Color (Yellow) Yellow Urine Clarity (Clear) Clear Urine pH (5-8) 5.5 Ur Specific [place] (1.005-1.025) <= 1.005 Urine Protein (Negative) mg/dL Negative Urine Ketones (Negative) mg/dL Negative Urine Blood (Negative) Trace-intact H Urine Nitrite (Negative) Negative Urine Bilirubin (Negative) Negative Urine Urobilinogen (Up to 0.2) mg/dL 0.2 Ur Leukocyte Esterase (Negative) Moderate H Urine RBC (0-2) HPF 0-2 Urine WBC (0-5) HPF 10-20 H Ur Epithelial Cells (Negative) HPF Many Urine Crystals (Negative) HPF Negative Urine Bacteria (Negative) HPF Rare Urine Casts (Negative) LPF Negative Urine Mucus (Negative) Negative Urine Other (Negative) Negative Ur Culture Indicated? No Urine Glucose (Negative) mg/dL Negative Urine Opiates Screen (Negative) Urine Methadone Screen (Negative) Ur Barbiturates Screen (Negative) Ur Tricyclics Screen (Negative) Ur Amphetamines Screen (Negative) U Benzodiazepines Scrn (Negative) Urine Cocaine Screen (Negative) Ur THC Screen (Negative) HPI General Mode of arrival: ambulatory. Date/Time Provider Initiated Documentation: 12/31/22 21:14. Limitations to Documentation: no limitations. Information obtained by: patient, RN notes reviewed and old records reviewed. HPI Narrative: 37-year-old female presents to the ER with a chief complaint of weakness, fast heart rate palpitations which began this afternoon. She reports that she has been laying on the couch all day. This felt like flulike symptoms. Checked her heart rate on her Apple Watch and it reported atrial fibrillation. She does have a past medical history of hyperlipidemia, depression obesity, GERD nicotine dependence. She does take Vyvanse and Zoloft. Denies any other associated symptoms. Related Data Home Medications Medication Instructions Recorded Confirmed cholecalciferol (vitamin D3) 50 50 mcg PO DAILY 02/10/21 10/13/22 mcg (2,000 unit) capsule clotrimazole 1 % topical cream 1 applic topical BID PRN yeast 10/04/21 10/13/22 rash #45 grams multivitamin 1 tab PO DAILY 01/14/22 10/13/22 albuterol sulfate 90 mcg/actuation 1 - 2 puff inhalation Q4H PRN PRN 08/17/22 10/13/22 aerosol inhaler (Proventil HFA) shortness of breath or wheezing #1 unit lisdexamfetamine 50 mg capsule 50 mg PO QAM #28 caps 10/13/22 10/13/22 lisdexamfetamine 50 mg capsule 50 mg PO QAM #28 caps 11/16/22 lisdexamfetamine 50 mg capsule 50 mg PO QAM #28 caps 12/14/22 (Vyvanse) omega-3 fatty acids-vitamin E cap 1XD 12/31/22 1,000 mg capsule red yeast rice 600 mg capsule 600 mg PO DAILY 12/31/22 12/31/22 sertraline 50 mg tablet (Zoloft) 50 mg PO DAILY 12/31/22 12/31/22 Previous Rx's Medication Instructions Recorded clotrimazole 1 % topical cream 1 applic topical BID PRN yeast 10/04/21 rash #45 grams albuterol sulfate 90 mcg/actuation 1 - 2 puff inhalation Q4H PRN PRN 08/17/22 aerosol inhaler (Proventil HFA) shortness of breath or wheezing #1 unit lisdexamfetamine 50 mg capsule 50 mg PO QAM #28 caps 10/13/22 lisdexamfetamine 50 mg capsule 50 mg PO QAM #28 caps 11/16/22 lisdexamfetamine 50 mg capsule 50 mg PO QAM #28 caps 12/14/22 (Vyvanse) Allergies Allergy/AdvReac Type Severity Reaction Status Date / Time No Known Allergies Allergy Verified 10/13/22 09:43 General Stated Complaint: Palpitatns JULIETA: 3 Review of Systems All systems reviewed & are unremarkable except as noted in HPI and below Constitutional Constitutional: Reports lethargy Cardiovascular Cardiovascular: Denies chest pain, Denies chest pain at rest, Reports rapid heart rate and Denies dyspnea Respiratory Respiratory: Denies dyspnea PFSH All Active Problems (Updated 12/31/22 @ 22:19 by Libia Baez NP) Palpitations (Acute) Hypomagnesemia (Acute) Hypokalemia (Acute) Hyperlipidemia (Acute) History of depression (Acute) RX Sertraline Obesity (Chronic) Overeating (Chronic) c/w binge eating d/o; started on vyvanse RX 05/2020, effective Gastroesophageal reflux disease (Chronic 12/26/19) [facility] [place] [facility] GI/Claude History of nicotine dependence (Chronic) Quit 2013 (social in college) Medical History Abnormal Pap smear of cervix (07/27/10) Ascus-POS HPV, colpo then all subsequent paps WNL Abnormal TSH 2017; normal 09/2019 Adult BMI 32.0-32.9 kg/sq m Anxiety Intermittent Sertraline Chronic cough (12/26/19) [facility] SAMSON/Claude; RX Nexium 40mg daily resolved issue COVID-19 08/13/20 after travel to [place] Family history of microcephaly Genital warts due to HPV (human papillomavirus) H/O gestational diabetes mellitus, not currently 2017 Panic attacks College (felt like [place]) Intermittently on Sertraline Recurrent genital HSV (herpes simplex virus) infection Surgical History [place] teeth extracted (2007) Family History Brother Substance abuse Heroin, cocaine-in recovery at moment Paternal Grandmother Colon cancer Other Alcohol abuse Social History Smoking/Tobacco Use Status: Former Tobacco Use Quit Date: 09/25/13 Smoking risk assessment performed?: Yes Alcohol Intake: current Alcohol Intake frequency: holidays/special occasions only Details: none in Drug use: Never Substance use type: does not use Adopted: No Caregiver/Support person: No Foster care: No Household members: spouse and children Housing: house Number of Children: 1 Communication Needs: None Education Level: master's degree Do you need help understanding health information?: Rarely 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 Date GA/Weeks # Preg Succ Route Wgt Sex Labor Lgth Anesthesia Location [facility] 10/22/18 39 No vaginal 2806.603 g Female 15 hrs. 37 min. jorge barba cnm 07/24/21 38 No vaginal 3418.952 g Female 4 hrs 45 min local [facility] Delivery Date: 10/22/18 Last Updated by: Jorge Barba CNM hand presenting with face @ delivery. Baby had heart murmur and microcephaly. Speech delays. Delivery Date: 07/24/21 Last Updated by: Anu Harris LPN PROM; Misoprostol; Ember Weldon Exam Narrative Exam Narrative: Constitutional: Alert and oriented x3. Appears stated age. Normal body habitus. Head: Normocephalic, no trauma. Eyes: Pupils PERRL, Red reflex noted, EOM's intact. Eyelids symmetrical without lesions, discharge, or swelling. ENT: Bilateral TM's WNL, External ear normal to inspection, no mastoid TTP, swelling, or erythema, Nasal turbinates WNL, no nasal discharge. Normal dentition, Posterior pharynx WNL, no exudate. Chest: Sinus tachycardia at a rate of 109, normal S1, S2, distal pulses intact. Resp: Lungs clear to auscultation bilaterally, no wheezes, rales, or rhonchi. Abdomen: Soft, non-distended, Normoactive bowel sounds all 4 quads. Musculoskeletal: Normal gait, 5/5 strength to all four extremities. Skin: No suspicious rashes or lesions. Capillary refill less than 2 sec. Neurologic: Cranial nerves II-XII intact. Alert and oriented x 3. Motor: No deficits noted. Sensory: Intact bilaterally all 4 extremities. Reflexes: DTR's intact bilaterally.. Hematologic/Lymphatic: No ecchymosis, no lymphadenopathy. Course Vital Signs Vital signs: Vital Signs Pulse 118 H 12/31/22 21:18 Respiratory Rate 18 12/31/22 21:18 Blood Pressure 125/86 12/31/22 21:18 Pulse Oximetry 95 12/31/22 21:18 Pulse 118 H 12/31/22 21:18 Respiratory Rate 18 12/31/22 21:18 Respiratory Effort Normal 12/31/22 21:22 Blood Pressure 125/86 12/31/22 21:18 Blood Pressure Position Sitting 12/31/22 21:18 Pulse Oximetry 95 12/31/22 21:18 Oxygen Delivery Method Room Air 12/31/22 21:18 Oxygen Flow Rate 0 12/31/22 21:18
[2022-12-31] MEDS: Normal Saline 1,000 ML 1000 ML IV (21:41)
[2022-12-31 21:49] LABS: Abs Immature Grans 0.03 10^3/uL (0.0-0.06); Absolute Basophil Count 0.02 10^3/uL (0.0-0.2); Absolute Eosinophil Count 0.06 10^3/uL (0.0-0.7); Absolute Monocyte Count 0.47 10^3/uL (0.1-0.8); Absolute Neutrophil Count 7.86 10^3/uL (1.2-6.7); Basophils % 0.2; Eosinophils % 0.7; HCT 40.6 % (36.0-46.0); HGB 13.7 g/dL (11.2-15.7); Immature Grans % 0.3; Lymphocytes % 7.7; MCH 30.4 pg (27.0-33.0); MCHC 33.7 % (32.0-36.0); MCV 90 fL (80-95); MPV 10.2 fL (8.0-11.0); Monocytes % 5.1; Platelet Count 287 10^3/uL (130-400); RDW 12.1 % (11.7-14.6); RDW-SD 40.1 fL; WBC 9.14 10^3/uL (4.4-10.8)
[2022-12-31 22:07] LABS: Bilirubin Negative (Negative); Blood Trace-intact (Negative); Clarity Clear (Clear); Glucose Negative (Negative); Ketones Negative (Negative); Leukocyte Esterase Moderate (Negative); Nitrite Negative (Negative); Specific Gravity <= 1.005 (1.005-1.025); Urobilinogen 0.2 mg/dL (Up to 0.2); pH 5.5 (5-8)
[2022-12-31 22:10] LABS: Bacteria Rare HPF (Negative); C & S Indicated? No; Casts Negative LPF (Negative); Crystals Negative HPF (Negative); Epithelial Cells Many HPF (Negative); Mucus Negative (Negative); Other Cells Negative (Negative); RBC 0-2 HPF (0-2)
[2022-12-31 22:14] LABS: ALT 19 U/L (14-59); AST 12 U/L (15-37); Albumin 3.5 g/dL (3.4-5.0); Alkaline Phosphatase 86 U/L (46-116); Anion Gap 10.4 mmol/L (3-11); BUN 9 mg/dL (7-18); Bilirubin, Total 0.6 mg/dL (0.2-1.0); CO2 23.6 mmol/L (21.0-32.0); CREATININE 0.7 mg/dL (0.55-1.02); Calcium 8.6 mg/dL (8.5-10.1); Chloride 101 mmol/L (98-107); Estimated GFR 115.59 (mL/min/1.73m2); Glucose 103 mg/dL (74-106); Magnesium 1.6 mg/dL (1.8-2.4); Potassium 3.2 mmol/L (3.5-5.1); Sodium 135 mmol/L (136-145); TSH (W/Ref FT4) 0.75 uIU/mL (0.36-3.74); Troponin I < 50 ng/L (<or=60)
[2022-12-31 22:16] LABS: *AMPHETAMINES SCREEN URINE Positive (Negative); *BARBITURATES SCREEN URINE Negative (Negative); *BENZODIAZEPINES SCREEN URINE Negative (Negative); Cannabinoids THC Negative (Negative); Cocaine Screen,Urine Negative (Negative); METHADONE URINE SCREEN Negative (Negative); OPIATES URINE SCREEN Negative (Negative); Tricyclic Antidepressants Negative (Negative)
[2022-12-31] MEDS: Magnesium Oxide 400 MG TAB PO (22:26)
[2022-12-31] MEDS: Potassium Chloride 20 MEQ TABCR 40 MEQ PO (22:26)
== END 2022-12-31 22:39 | disposition home or self-care (01) ==
PROVIDERS: Emergency Provider Registered Nurse Emergency; PCP Nurse Practitioner Adult Health
DX: R00.2 Palpitations (principal); E83.42 Hypomagnesemia; E87.6 Hypokalemia; E78.5 Hyperlipidemia, unspecified; Z86.16 Personal history of COVID-19
CPT/HCPCS: 80053; 80307; 93005; 96360; 99284; 81003; 81015; 83735; 84443; 84484; 85025; 93010

== ENCOUNTER 2023-03-29 13:12 | Outpatient (CLI) | payer BC, SELFPAY ==
[2023-03-29 14:03] LABS: Anion Gap 10.4 mmol/L (3-11); BUN 22 mg/dL (7-18); CO2 25.6 mmol/L (21.0-32.0); CREATININE 0.7 mg/dL (0.55-1.02); Calcium 9.1 mg/dL (8.5-10.1); Chloride 108 mmol/L (98-107); Estimated GFR 115.59 (mL/min/1.73m2); Glucose 107 mg/dL (74-106); Potassium 3.7 mmol/L (3.5-5.1); Sodium 144 mmol/L (136-145)
[2023-03-30 12:17] LABS: IgA 280 mg/dL (85-499); Interpretation (See Note); Tissue Transglutaminase IgA <1.2 U/mL (<4.0)
== END 2023-03-29 13:13 | disposition home or self-care (01) ==
LOC: LBO 13:12
PROVIDERS: PCP Nurse Practitioner Adult Health; Visit Provider Nurse Practitioner Adult Health
DX: E83.42 Hypomagnesemia (principal); E87.6 Hypokalemia; R00.2 Palpitations; R63.2 Polyphagia
CPT/HCPCS: 36415; 80048; 82784; 83516; 83735

== ENCOUNTER 2023-07-28 16:53 | Outpatient (REF) | payer BC, SELFPAY ==
[2023-07-28 14:15] LABS: Source Nasal/Nares
[2023-07-28 15:10] LABS: COVID-19 PCR Negative (Negative)
== END 2023-07-28 16:54 | disposition home or self-care (01) ==
LOC: LBN 16:53
PROVIDERS: PCP Nurse Practitioner Adult Health; Visit Provider Physician Assistant Medical
DX: J02.9 Acute pharyngitis, unspecified (principal)
CPT/HCPCS: 87635; 87070

== ENCOUNTER 2023-12-20 04:53 | Outpatient (CLI) | payer BC, SELFPAY ==
[2023-12-20 10:39] LABS: Anion Gap 9.4 mmol/L (3-11); BUN 16 mg/dL (7-18); CO2 25.6 mmol/L (21.0-32.0); CREATININE 0.6 mg/dL (0.55-1.02); Chloride 105 mmol/L (98-107); Estimated GFR 119.23 (mL/min/1.73m2); Glucose 90 mg/dL (74-106); Potassium 3.9 mmol/L (3.5-5.1); Sodium 140 mmol/L (136-145)
[2023-12-20 11:06] LABS: Calculated LDL 79 mg/dL (<100); Cholesterol 198 mg/dL (<200); HDL Cholesterol 44 mg/dL (40-60); Triglyceride 376 mg/dL (<150)
== END 2023-12-20 04:54 | disposition home or self-care (01) ==
LOC: LBO 04:53
PROVIDERS: PCP Nurse Practitioner Adult Health; Visit Provider Nurse Practitioner Adult Health
DX: Z13.220 Encounter for screening for lipoid disorders (principal); R79.89 Other specified abnormal findings of blood chemistry; E66.9 Obesity, unspecified; R63.2 Polyphagia
CPT/HCPCS: 36415; 80048; 80061

== ENCOUNTER 2024-10-03 17:17 | Outpatient (REF) | payer BC, SELFPAY | END 2024-10-03 17:18 | disposition home or self-care (01) | LOC: LBN 17:17 | PROVIDERS: PCP Nurse Practitioner Adult Health; Visit Provider Emergency Medicine Emergency Medical Services | DX: N30.00 Acute cystitis without hematuria (principal) | CPT/HCPCS: 87086 ==

== ENCOUNTER 2024-10-08 03:44 | Outpatient (CLI) | payer BC, SELFPAY ==
[2024-10-08 16:40] LABS: Hemoglobin A1C 4.8 % (<5.7)
[2024-10-08 17:25] LABS: ALT 22 U/L (14-59); AST 26 U/L (15-37); Albumin 4.1 g/dL (3.4-5.0); Alkaline Phosphatase 75 U/L (46-116); Anion Gap 11.4 mmol/L (3-11); BUN 21 mg/dL (7-18); Bilirubin, Total 0.43 mg/dL (0.2-1.0); CO2 23.6 mmol/L (21.0-32.0); CREATININE 0.7 mg/dL (0.55-1.02); Calcium 10.1 mg/dL (8.5-10.1); Calculated LDL 179 mg/dL (<100); Chloride 104 mmol/L (98-107); Cholesterol 262 mg/dL (<200); Estimated GFR 114.16 (mL/min/1.73m2); Glucose 100 mg/dL (74-106); HDL Cholesterol 64 mg/dL (40-60); Potassium 3.7 mmol/L (3.5-5.1); Sodium 139 mmol/L (136-145); Total Protein 7.9 g/dL (6.4-8.2); Triglyceride 96 mg/dL (<150)
[2024-10-11 12:25] LABS: Lipoprotein (a) 72 nmol/L (<75)
== END 2024-10-08 03:45 | disposition home or self-care (01) ==
LOC: LBO 03:44
PROVIDERS: PCP Nurse Practitioner Adult Health; Visit Provider Nurse Practitioner Adult Health
DX: E78.2 Mixed hyperlipidemia (principal); E66.09 Other obesity due to excess calories; Z68.36 Body mass index [BMI] 36.0-36.9, adult; Z51.81 Encounter for therapeutic drug level monitoring; Z86.32 Personal history of gestational diabetes
CPT/HCPCS: 36415; 80053; 80061; 83695; 83036

== ENCOUNTER 2025-02-21 00:57 | Outpatient (CLI) | payer BC, SELFPAY ==
[2025-02-26 12:45] LABS: Lipoprotein (a) 35 nmol/L (<75)
[2025-02-26 15:17] LABS: Apolipoprotein B, Serum 126 mg/dL (48-124); Beta VLDL Cholesterol Not Detected mg/dL (<15); Beta VLDL Triglycerides Not Detected mg/dL (<15); Cholesterol, Total, CDC 249 mg/dL; Chylomicron Cholesterol Not Detected; Chylomicron Triglycerides Not Detected; HDL Cholesterol, CDC 47 mg/dL (>=50); LDL Cholesterol 138 mg/dL; LDL Triglycerides 86 mg/dL (<=50); Lp(a) Cholesterol <5 mg/dL (<5); LpX Not detected; Triglycerides, CDC 338 mg/dL; VLDL Cholesterol 64 mg/dL (<30); VLDL Triglycerides 208 mg/dL (<120)
== END 2025-02-21 00:58 | disposition home or self-care (01) ==
PROVIDERS: PCP Nurse Practitioner Adult Health; Visit Provider Nurse Practitioner Adult Health
DX: E78.2 Mixed hyperlipidemia (principal)
CPT/HCPCS: 36415; 80061; 83695; 82172; 82664

== ENCOUNTER 2025-02-21 16:17 | Outpatient (REF) | payer BC, SELFPAY ==
[2025-02-24 23:05] LABS: Calprotectin <50.0 mcg/g
== END 2025-02-21 16:18 | disposition home or self-care (01) ==
LOC: LBN 16:17
PROVIDERS: PCP Nurse Practitioner Adult Health; Visit Provider Nurse Practitioner Adult Health
DX: R19.7 Diarrhea, unspecified (principal); R19.4 Change in bowel habit
CPT/HCPCS: 83993

== ENCOUNTER 2025-06-04 04:23 | Outpatient (CLI) | payer BC, SELFPAY ==
[2025-06-10 14:55] LABS: Apolipoprotein B, Serum 66 mg/dL (48-124); Beta VLDL Cholesterol Not Detected mg/dL (<15); Beta VLDL Triglycerides Not Detected mg/dL (<15); Cholesterol, Total, CDC 164 mg/dL; Chylomicron Cholesterol Not Detected; Chylomicron Triglycerides Not Detected; HDL Cholesterol, CDC 60 mg/dL (>=50); Interpretation Normal; LpX Not detected; Triglycerides, CDC 99 mg/dL; VLDL Triglycerides 47 mg/dL (<120)
== END 2025-06-04 04:24 | disposition home or self-care (01) ==
PROVIDERS: PCP Nurse Practitioner Adult Health; Visit Provider Nurse Practitioner Adult Health
DX: E78.2 Mixed hyperlipidemia (principal)
CPT/HCPCS: 36415; 80061; 83695; 82172; 82664

== ENCOUNTER 2025-07-10 11:52 | Outpatient (REF) | payer BC, SELFPAY ==
--- NOTE | 2025-07-10 11:30 | PAPFT_PTH ---
PATIENT: Eli Nieves LOC: [facility] U#:[id number] AGE/SX: 40/F ROOM: RE07/10/[address]: Anu Diane DO : 1985 BED: DIS: 07/10/2025 SPEC #: [id number] RECD: 07/10/25 12:38 STATUS: ROSALIE REQ #: [id number] JOSE: 07/10/25 11:[address]: Anu Diane DEPT: [facility] Cytology RECD BY: Una Roque ENTERED: 07/10/25 12:38 SP TYPE: PAPFT OTHR DR: Amalia Dominguez APRN Tissues: 1 - CX/ENDOCX FOR PAP SMEARS Procedures: PAP THIN PREP/[facility] Screening HPV DNA PROBE Comments: [id number] (HPV 16 & 18/45)
== END 2025-07-10 11:53 | disposition home or self-care (01) ==
LOC: LBN 11:52
PROVIDERS: PCP Nurse Practitioner Adult Health; Visit Provider Obstetrics & Gynecology
DX: Z12.4 Encounter for screening for malignant neoplasm of cervix (principal)
CPT/HCPCS: 88142; 87624